=== PATIENT | female | born 1990 | race Hispanic/Latino ===

== ENCOUNTER 2022-12-23 17:18 | Emergency (ER) | payer SELFPAY ==
--- OUTSIDE RECORDS SUMMARY | 2022-12-23 17:22 | XMS REPORT | Continuity of Care Document ---
:1990 Author Organization [facility] t Address [address] [facility]. [address] [place] [address] Care Team Providers Name Role Phone Unavailable Unavailable Unavailable Payers Payer Name Policy Type Policy Number Effective Date Expiration Date S ource Problems This patient has no known problems. Allergies, Adverse Reactions, Alerts Allergy Allergy Status Severity Reaction(s) Onset Inactive Treating Comm ents Source Name Type Date Date Clinician latex DA Active [place] [facility] 09-23 [facility] 00:00: [address] latex DA Active [place] RASH [facility] 09-23 [facility] 00:00: [address] Medications This patient has no known medications. Procedures This patient has no known procedures. Encounters Start End Encounter Admission Attending Care Care Encounter Source Date/Time Date/Time Type Type Clinicians Facility Department ID 2019-12-20 Inpatient [facility] ER [id number] [facility] 14:24:[address] [place] [address] Results Test Description Test Time Test Comments Results Result [facility] e Comments - CTA CHEST FOR PE 2019-12-20 Patient Name: 19:28:00 DELONTE MCBRIDE Unit No: [id number] EXAMS: CPT CODE: [id number] CTA CHEST FOR PE [id number] Reason: PE PROTOCOL History: PE PROTOCOL. Technique: Post contrast images of the chest are obtained, with detailed contrast images with two-dimensional and coronal reconstructed images. Intravenous administration of 80 cc Isovue-370 was used according to the CT pulmonary angiogram protocol. 2-D and 3-D reconstructions performed. Comparison: None. Findings: No filling defects within the central pulmonary arteries. The main pulmonary artery is normal in size. Heart, aorta, and great vessels unremarkable. Lungs show no worrisome air space, interstitial, or airways disease. No pleural thickening or pleural effusion. No mediastinal mass. No adenopathy appreciated in the mediastinum, hilum, or axilla. Visualized upper abdomen unremarkable. Bones and soft tissues within normal limits. Impression: 1. No CT evidence for pulmonary embolism. at 1928 Reported and signed by: Fab Chirinos MD CC: Belle Diggs MORTGAGE PROCESSOR; Ricardo Alvarez MD Technologist: Ludy Ivey CT Trscrpt Dt/ ([id number])[email or web address] Orig Print D/T: S: 12/20/2019 (1930) CTDI: DLP: [facility] NAME: DELONTE MCBRIDE [id number] [facility] PHYS: PEPDA. [place] [id number] : 1990 AGE: 29 SEX: F LOC: D.NER PHONE #: [phone] EXAM DATE: 12/20/2019 STATUS: REG ER FAX #: RAD NO: DC Dt: PAGE 1 Signed Report UA RFLX MICROSCOPIC CULTURE 2019-12-20 17:34:00 Test Item Value Reference Range Interpretation Comme nts UA COLOR (test code = COLU) YELLOW YELLOW UA APPEARANCE (test code = APPU) CLEAR CLEAR UA GLUCOSE DIPSTICK (test code = DGLUU) NEGATIVE mg/dL NEGATIVE UA BILIRUBIN DIPSTICK (test code = BILU) NEGATIVE NEGATIVE UA KETONE DIPSTICK (test code = KETU) NEGATIVE mg/dL NEGATIVE UA SPECIFIC GRAVITY (test code = SGU) 1.010 1.001-1.035 N UA BLOOD DIPSTICK (test code = MP) NEGATIVE NEGATIVE UA PH DIPSTICK (test code = SERVANDO) 8.0 5.5-7.0 H UA PROTEIN DIPSTICK (test code = PROU) NEGATIVE mg/dL NEGATIVE UA UROBILINOGEN DIPSTICK (test code = URO) NORMAL mg/dL NORMAL UA NITRITE DIPSTICK (test code = HEATHER) NEGATIVE NEGATIVE UA LEUKOCYTE ESTERASE DIPSTICK (test code = LEUU) NEGATIVE NEGA TIVE UA COMMENT (test code = COMU) VOLUME 10-12 ML URINE SPECIMEN DESCRIPTION (test code = UASPEC) Clean Catch UA WBC (test code = WBCU) < 10 #/hpf <10 UA SQUAMOUS CELLS (test code = SQU) 20 - 40 #/lpf <100 UA CULTURE NEEDED? (test code = UACULT) Criteria not met Indication for culture: Flank PainURINE SOURCE: Clean CatchD-DIMER QUANT 2019-12-20 17:33:00 Test Item Value Reference Range Interpretation Comments D-DIMER QUANT (test 615 D-DU 0-400 H Alere Triage values code = DDIMER) presented in units of mass (ng/mL)of D-dim er, also known as D-dime r units (D-DU).* Cut-of f: 400 ng/mL Results o f the D-Dimer test sh ould always be interpretedi n conjunction wit h the patient's medic al history, clinicalpresent ation, and other findings. Clinical diagnosis shoul dnot be based on the re sults of D-Dimer alone.P atients with a distal D VT may have a normal D-Dime r result. - XR CHEST 1 [id number] 17:33:00 Patient Name: DELONTE MCBRIDE Unit No: [id number] EXAMS: CPT CODE: [id number] XR CHEST 1 V [id number] Reason: TACHYCARDIA, DYSPNEA History: TACHYCARDIA, DYSPNEA. Technique: Single view of the chest Com parison: None Findings: Normal cardiomediastinal silhouette. Clear lungs. Impression: Unremarkable chest radiograph. at 1733 Reported and signed by: Fab Chirinos MD CC: Belle Diggs MORTGAGE PROCESSOR; Ricardo Alvarez MD Technologist: Ludy THOMAS Trscrpt Dt/ ([id number])[email or web address] Orig Print D/T: S: 12/20/2019 (1736) [facility] NAME: DELONTE MCBRIDE [id number] [facility] PHYS: [email or web address] - [place] [address] : 1990 AGE: 29 SEX: F LOC: [place] PHONE #: [phone] EXAM DATE: 12/20/2019 STATUS: PRE ER FAX #: RAD NO: DC Dt: PAGE 1 Signed ReportUA RFLX MICROSCOPIC CULTURE 2019-12-20 17:29:00 Test Item Value Reference Range Interpretation Comments UA COLOR (test code = COLU) YELLOW YELLOW UA APPEARANCE (test code = CLEAR CLEAR APPU) UA GLUCOSE DIPSTICK (test NEGATIVE mg/dL NEGATIVE code = DGLUU) UA BILIRUBIN DIPSTICK (test NEGATIVE NEGATIVE code = BILU) UA KETONE DIPSTICK (test code NEGATIVE mg/dL NEGATIVE = KETU) UA SPECIFIC GRAVITY (test 1.010 1.001-1.035 N code = SGU) UA BLOOD DIPSTICK (test code NEGATIVE NEGATIVE = MP) UA PH DIPSTICK (test code = 8.0 5.5-7.0 H SERVANDO) UA PROTEIN DIPSTICK (test NEGATIVE mg/dL NEGATIVE code = PROU) UA UROBILINOGEN DIPSTICK NORMAL mg/dL NORMAL (test code = URO) UA NITRITE DIPSTICK (test NEGATIVE NEGATIVE code = HEATHER) UA LEUKOCYTE ESTERASE NEGATIVE NEGATIVE DIPSTICK (test code = LEUU) UA COMMENT (test code = COMU) VOLUME 10-12 ML URINE SPECIMEN DESCRIPTION Clean Catch (test code = UASPEC) UA WBC (test code = WBCU) #/hpf <10 UA SQUAMOUS CELLS (test code #/lpf <100 = SQU) UA CULTURE NEEDED? (test code = UACULT) Indication for culture: Flank PainURINE SOURCE: Clean CatchCOMPREHENSIVE METABOLIC [id number] 17:07:00 Test Item Value Reference Range Interpretation Comments SODIUM (test code = 137 MMOL/L 133-145 N NA) POTASSIUM (test code = 3.0 MMOL/L 3.6-5.2 L K) CHLORIDE (test code = 96 MMOL/L 100-108 L CL) CARBON DIOXIDE (test 18 MMOL/L 22-32 L code = CO2) GLUCOSE (test code = 189 MG/DL 65-99 H Results of this GLU) assay method ma y be falsely depress ed orelevated if patient is taki ng sulfasalazine. BLOOD UREA NITROGEN 8 MG/DL 6-20 N (test code = BUN) GLOMERULAR FILTRATION 60 71-165 L Report ing units: RATE (test code = GFR) mL/mi n/1.73m\S\2 (Modified MDRD Formula) CREATININE (test code 1.09 MG/DL 0.60-1.00 H = CREAT) TOTAL PROTEIN (test 8.2 G/DL 6.4-8.2 N code = PROT) ALBUMIN (test code = 4.5 G/DL 3.4-5.0 N ALB) GLOBULIN (test code = 3.7 G/DL 1.5-3.8 N GLOB) ALBUMIN/GLOBULIN RATIO 1.2 1.1-2.2 N (test code = A/G) CALCIUM (test code = 9.7 MG/DL 8.7-10.5 N CA) BILIRUBIN TOTAL (test 0.6 MG/DL 0.0-1.0 N code = BILT) SGOT/AST (test code = 17 Units/L 15-37 N Result s of this AST) assay method ma y be falsely depress ed orelevated if patient is taki ng sulfasalazine. SGPT/ALT (test code = 20 Units/L 30-65 L Result s of this ALT) assay method ma y be falsely depress ed orelevated if patient is taki ng sulfasalazine. ALKALINE PHOSPHATASE 146 Units/L 50-136 H TOTAL (test code = ALKP) [id number] 17:07:00 Test Item Value Reference Range Interpretation Comments LIPASE (test code = LIP) 89 Units/L 73-393 N NT PRO-BRAIN NATRIURETIC [id number] 17:07:00 Test Item Value Reference Range Interpretation Comments NT PRO-BRAIN 49 PG/ML 0-125 N Results of this assay NATRIURETIC PEPTI (test meth od may be falsely code = PROBNP) depressed ore levated if patient is t aking high doses of B iotin. [id number] 17:07:00 Test Item Value Reference Range Interpretation Comments TROPONIN-I (test < 0.04 NG/ML 0.00-0.06 N - The use of serial code = TROPI) sampling and t esting protocol is a recommended pra ctice.- An elevated tro ponin level alone is often not sufficient for diagnosis of myocardial infarction.Resu lts of this assay meth od may be falsely depress ed orelevated if p atient is taking high dos es of Biotin. CBC W/AUTO [id number] 16:56:00 Test Item Value Reference Range Interpretation Comments WHITE BLOOD CELL (test code = 11.38 x10 3/uL 4.80-10.80 H WBC) RED BLOOD CELL (test code = 4.57 x10 6/uL 4.2-5.4 N RBC) HEMOGLOBIN (test code = HGB) 14.3 G/DL 12.0-16.0 N HEMATOCRIT (test code = HCT) 44.1 % 37-47 N MEAN CELL VOLUME (test code = 96.5 FL 81-99 N MCV) MEAN CELL HGB (test code = 31.3 PG 27-31 H MCH) MEAN CELL HGB CONCENTRATION 32.4 G/DL 33-37 L (test code = MCHC) RED CELL DISTRIBUTION WIDTH 13.3 % 11.5-14.5 N (test code = RDW) PLATELET COUNT (test code = 334 x10 3/uL 150-450 N PLT) MEAN PLATELET VOLUME (test 11.1 FL 7.4-10.4 H code = MPV) NEUTROPHIL % (test code = NT%) 75.4 % 42-86 N LYMPHOCYTE % (test code = LY%) 17.8 % 24-44 L MONOCYTE % (test code = MO%) 6.1 % 0.0-4.0 H EOSINOPHIL % (test code = EO%) 0.4 % 0.0-2.7 N BASOPHIL % (test code = BA%) 0.3 % 0.0-0.5 N NEUTROPHIL # (test code = NT#) 8.60 x10 3/uL 1.8-7.7 H LYMPHOCYTE # (test code = LY#) 2.02 x10 3/uL 1.0-4.8 N MONOCYTE # (test code = MO#) 0.69 x10 3/uL 0.0-0.8 N EOSINOPHIL # (test code = EO#) 0.04 x10 3/uL 0.0-0.5 N BASOPHIL # (test code = BA#) 0.03 x10 3/uL 0.0-0.2 N HCG SERUM [id number] 16:55:00 Test Item Value Reference Range Interpretation Comments HCG SERUM QUAL NEGATIVE NEGATIVE False negativ es may occur (test code = when levels of hCGare below HCGQL) 10 mIU/ml. When is still suspec alice, a new specimenshould be obtained after 48 hours and re-tested.If wa iting 48 hours is not me dically advisable,the t est result should be confi rmed using aquantitative h CG assay. Notes Date/Time Note Provider Source 2019-12-20 17:09:00-00:00 [id number] [place], [place] PATIENT NAME: DELONTE MCBRIDE ADMIT DATE: 0 12/20/19 ACCOUNT NO: [id number] ROOM NO: AGE: 29 REPORT TYPE: ELECTROCARDIOGRAM SEX: F : 89 ADMITTING PHYSICIAN: ATTENDING PHYSICIAN:Ricardo Alvarez MD Order: [id number] Test Reason : TACHYCARDIA Test Date/Time Stamp: WedDec 20 2019 17:09:01 Blood Pressure : / mmHG Vent. Rate : 083 BPM Atrial Rate : 083 BPM P-R Int : 128 ms QRS Dur : 092 ms QT Int : 388 ms P-R-T Axes : 064 -09 020 degree s QTc Int : 455 ms Normal sinus rhythm with sinus arrhythmia Normal ECG No previous ECGs available Confirmed by RICARDO ALVAREZ DO ([id number]), technical writer and editor TYE BALDWIN ([id number]) on 02/16/2020 2:35:26 PM Referred By: Self Referred Confirmed by:RICARDO SANDOVAL DO at 1436 PATIENT NAME: DELONTE MCBRIDE ACCOUNT #: [id number] 2019-12-20 14:57:00-00:[address] [facility] OR A [facility]AMPUS OF [facility] EMERGENCY PROVIDER REPORT REPORT#:[id number] REPORT STATUS: Signed DATE:12/20/19 TIME: 1457 PATIENT: DELONTE MCBRIDE UNIT #: [id number] ROOM/BED: AGE: 29 SEX: F PCP PHYS: No Primary or Family Ph ysician SERVICE AUTHOR: Ricardo Alvarez MD * ALL edits or amendments must be made on the el [employer]/computer document * Ricardo Alvarez 12/20/19 1457: HPI-Chest Pain 40 and Over General Confirmed Patient Yes Past Medical History - Adult Stated Complaint SOB Allergies Coded Allergies: latex (Intermediate, RASH 09/24/15) Drug Use Denies recreational drugs Patient Discharge Departure Vital Signs/Condition Vital Signs First Documented: Result Date Time Pulse Ox 99 12/19 1426 B/P 189/95 / 1426 B/P Mean 126 / 1426 O2 Delivery Room air 12/19 1426 Temp 36.9 09 1426 Pulse 132 09/ 1426 Resp 22 12/19 1426 Last Documented: Result Date Time Pulse Ox 99 12/19 1426 B/P 189/95 / 1426 B/P Mean 126 /09 1426 O2 Delivery Room air 12/19 1426 Temp 36.9 12/19 1426 Pulse 132 09/09 1426 Resp 22 12/19 1426 All vital signs available at the time of this en try have been reviewed. Belle Castillo 12/20/19 1645: HPI-Chest Pain 40 and Over General Initial Greet Date/Time 12/20/19 1457 Presentation Chief Complaint Chest pain, Shortness of breath Hx Obtained From Patient Sudden in Onset? Yes Onset Occurred Today (1315) Symptom Duration Since onset Location Substernal Quality Tightness )( Migration/Movement None Severity: Onset Mild Severity: Current No pain currently Exacerbated by Nothing Relieved by Rest Context /Sexual Hx Last Menstrual Period 11/28/19 Free Text HPI Notes Free Text HPI Notes 29-year-old female patient presents to the ER to day. She reports that at approximately 115 after retu rning from her lunch break she had a panic attack at work. The patient states that she had sh ortness of breath. She reports feeling her heart was beating rather fast. After a while she noted that her hands were cramping. She felt painful electric shocks to he r arms and legs. I have evaluated the patient 2 hours after her a rrival in the ER. She states she is feeling much better a t this point. Her heart rate continues to be in the 1 teens to 120s. She states she had not eaten anything for lunch or breakfast. She has only had coffee today. 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 She is a daily smoker. The patient does admit to drinking 1 to 2-24 ounce beers daily. She also smokes marijuana. She denies any nausea or vomiting. The patient has a Nexplanon implant in her arm. Risk-Chest Pain 40 and Over Risk Stratification )( Coronary Artery Disease Risk factors reviewed , No risk factors )( Thoracic Aortic Dissection Risk factors revie wed, No risk factors )( Pulmonary Embolism Risk factors reviewed, No risk factors )( AMI-Aspirin Aspirin Last 24 Hrs None Contraindications None )( HEART for MACE )( HEART for MACE Response Value History Low index of suspicion 0 Age Age under 45 0 Risk Factors for CAD No risk factors known 0 Total 0 Physical Exam Vital Signs Vital Signs First Documented: Result Date Time Pulse Ox 99 12/19 1426 B/P 189/95 12/19 1426 B/P Mean 126 12/19 1426 O2 Delivery Room air 12/19 142 Temp 36.9 12/19 1426 Pulse 132 12/19 1426 Resp 22 12/19 142 Last Documented: Result Date Time Pulse Ox 99 12/19 1426 B/P 189/95 12/19 1426 B/P Mean 126 12/19 1426 O2 Delivery Room air 12/19 1426 Temp 36.9 12/19 1426 Pulse 132 12/19 1426 Resp 22 12/19 1426 Review of Vital Signs Reviewed Focused PE General/Const General/Const Awake, Alert, No acute distress, Cooperative, Not toxic appearing Resp/Chest Respiratory/Chest Atraumatic, Breath sounds NL, No respiratory distress Cardiovascular Heart Rate/Rhythm Tachycardia. Abdomen/GI Abdomen/GI Atraumatic, Soft, Non-tender, BS nor moactive, No distention MS Back Back No CVA tenderness Skin Skin Atraumatic, Color NL, Warm, Dry, Intact Neurologic Neurologic Oriented X3, Speech NL, Memory NL Psychiatric Psychiatric Affect NL, Mood NL Interpretation Diagnostics Lab Results Interpretation Results Laboratory Tests 12/20/19 1435: [Embedded Image Not Available] Laboratory Tests: 12/19 12/19 1712 1435 Chemistry HCG, Qual (NEGATIVE) NEGATIVE Urines Ur Spec Description Clean Catch Urine Color (YELLOW) YELLOW Urine Appearance (CLEAR) CLEAR Urine pH (5.5 - 7.0) 8.0 H Ur Specific Winton (1.001 - 1.035) 1.010 Urine Protein (NEGATIVE mg/dL) NEGATIVE Urine Glucose (UA) (NEGATIVE mg/dL) NEGATIVE Urine Ketones (NEGATIVE mg/dL) NEGATIVE Urine Blood (NEGATIVE) NEGATIVE Urine Nitrite (NEGATIVE) NEGATIVE Urine Bilirubin (NEGATIVE) NEGATIVE Urine Urobilinogen (NORMAL mg/dL) NORMAL Ur Leukocyte Esterase (NEGATIVE) NEGATIVE Urine WBC (<10 #/hpf) < 10 Ur Squamous Epith Cells (<100 #/lpf) 20 - 40 Urine Culture Screen Criteria not met Urine Comment VOLUME 10-12 ML 12/19 1435 Chemistry Sodium (133 - 145 MMOL/L) 137 Potassium (3.6 - 5.2 MMOL/L) 3.0 L Chloride (100 - 108 MMOL/L) 96 L Carbon Dioxide (22 - 32 MMOL/L) 18 L BUN (6 - 20 MG/DL) 8 Creatinine (0.60 - 1.00 MG/DL) 1.09 H Estimated GFR (MDRD) (71 - 165) 60 L Glucose (65 - 99 MG/DL) 189 H Calcium (8.7 - 10.5 MG/DL) 9.7 Total Bilirubin (0.0 - 1.0 MG/DL) 0.6 AST (15 - 37 Units/L) 17 ALT (30 - 65 Units/L) 20 L Alkaline Phosphatase (50 - 136 Units/L) 146 H Troponin I (0.00 - 0.06 NG/ML) < 0.04 NT-Pro-B Natriuret Pep (0 - 125 PG/ML) 49 Total Protein (6.4 - 8.2 G/DL) 8.2 Albumin (3.4 - 5.0 G/DL) 4.5 Globulin (1.5 - 3.8 G/DL) 3.7 Albumin/Globulin Ratio (1.1 - 2.2) 1.2 Lipase (73 - 393 Units/L) 89 Coagulation D-Dimer Quant (PE/DVT) (0 - 400 D-DU) 615 H Hematology WBC (4.80 - 10.80 x10 3/uL) 11.38 H RBC (4.2 - 5.4 x10 6/uL) 4.57 Hgb (12.0 - 16.0 G/DL) 14.3 Hct (37 - 47 %) 44.1 MCV (81 - 99 FL) 96.5 MCH (27 - 31 PG) 31.3 H MCHC (33 - 37 G/DL) 32.4 L RDW Coeff of Kishor (11.5 - 14.5 %) 13.3 Plt Count (150 - 450 x10 3/uL) 334 MPV (7.4 - 10.4 FL) 11.1 H Neut % (Auto) (42 - 86 %) 75.4 Lymph % (Auto) (24 - 44 %) 17.8 L Cooper % (Auto) (0.0 - 4.0 %) 6.1 H Eos % (Auto) (0.0 - 2.7 %) 0.4 Baso % (Auto) (0.0 - 0.5 %) 0.3 Eos # (Auto) (0.0 - 0.5 x10 3/uL) 0.04 Baso # (Auto) (0.0 - 0.2 x10 3/uL) 0.03 Absolute Neuts (auto) (1.8 - 7.7 x10 3/uL) 8.60 H Absolute Lymphs (auto) (1.0 - 4.8 x10 3/uL) 2.0 2 Absolute Monos (auto) (0.0 - 0.8 x10 3/uL) 0.69 Recent Impressions: RADIOLOGY - XR CHEST 1 V 12/19 1718 Report Impression - Status: SIGNED Entered: 12/20/2019 1736 Impression: Unremarkable chest radiograph. Impression By: Larry Chirinos MD CAT SCAN - CTA CHEST FOR PE 12/19 1840 Report Impression - Status: SIGNED Entered: 12/20/2019 1931 Impression: 1. No CT evidence for pulmonary embolism. Impression By: Larry Chirinos MD Re-Evaluation MDM ED Course Medication(s) Ordered Medication(s) Ordered: Antihistamine Drugs Sig/Dillon Start time Last Medication Dose Route Stop Time Status Admin Diphenhydramine HCl 25 MG X1ED STA 12/19 1812 D C 12/19 IV 12/19 1814 1825 Diagnostic Agents Sig/Dillon Start time Last Medication Dose Route Stop Time Status Admin Iopamidol 0 .STK-MED ONE 12/19 1759 DC 12/19 IV 1847 Electrolytic, Caloric, And Dyana Sig/Dillon Start time Last Medication Dose Route Stop Time Status Admin Sodium Chloride 50 ML .STK-MED ONE 12/19 1841 D C 12/19 IV 1846 Potassium 40 MEQ X1ED STA 12/19 1722 DC 12/19 Bicarbonate/Citric PO 12/19 1723 1826 Acid Sodium Chloride 1,000 ML X1ED STA 12/19 1645 DC 12/19 IV 12/19 1744 1710 Hormones And Synthetic Substit Sig/Dillon Start time Last Medication Dose Route Stop Time Status Admin Methylprednisolone 125 MG X1ED STA 12/19 1813 D C 12/19 Sodium Succinate IV 12/19 1814 1825 Patient Discharge Departure Clinical Impression Clinical Impression Primary Impression: Hypokalemia Disposition Decision Discharge )( Discharged to Home Yes )( Time 1933 )( Date 12/20/19 Discharge/Care Plan Counseled Regarding Diagnosi s, Lab results, Imaging studies, Need for follow-up, When to return to ED Prescriptions Reviewed Risks, Benefits, Alternat noah treatment at 1935 RPT #:[id number] END OF REPORT 2019-12-20 14:57:00-00:[address] [facility] OR A CAMPUS OF [facility] EMERGENCY PROVIDER REPORT REPORT#:[id number] REPORT STATUS: Signed DATE:12/20/19 TIME: 1456 PATIENT: DELONTE MCBRIDE UNIT #: [id number] ROOM/BED: AGE: 29 SEX: F PCP PHYS: No Primary or Family Ph ysician SERVICE AUTHOR: Ricardo Alvarez MD * ALL edits or amendments must be made on the [employer]/computer document * Ricardo Alvarez 12/20/19 1457: HPI-Chest Pain 40 and Over General Confirmed Patient Yes Initial Greet Date/Time 12/20/191456 Review of Systems Focused Review of Systems Constitutional Denies: Chills, Fever. Respiratory Reports: Shortness of breath. Cardiovascular Reports: Chest pain, Palpitations. GI Denies: Abdominal pain, Nausea, Vomiting. Musculoskeletal Denies: Back pain, Lumbar pain, Myalgia, Neck pa in, Thoracic pain. Skin Denies: Diaphoresis. Neurologic Denies: Dizziness, Generalized weakness, Headach e, Lightheaded, Numbness. Past Medical History - Adult Stated Complaint SOB Allergies Coded Allergies: latex (Intermediate, RASH 09/24/15) Review of Nursing Notes Rev avail, and agree Drug Use Denies recreational drugs Interpretation Diagnostics Lab Results Interpretation Lab Statement Laboratory studies reviewed and considered in e medical decision-making. Belle Castillo 12/20/19 1645: HPI-Chest Pain 40 and Over Presentation Chief Complaint Chest pain, Shortness of breath Hx Obtained From Patient Sudden in Onset? Yes Onset Occurred Today (1315) Symptom Duration Since onset Location Substernal Quality Tightness )( Migration/Movement None Severity: Onset Mild Severity: Current No pain currently Exacerbated by Nothing Relieved by Rest Context /Sexual Hx Last Menstrual Period 11/28/19 Free Text HPI Notes Free Text HPI Notes 29-year-old female patient presents to the ER to day. She reports that at approximately 115 after retu rning from her lunch break she had a panic attack at work. The patient states that she had sh ortness of breath. She reports feeling her heart was beating rather fast. After a while she noted that her hands were cramping. She felt painful electric shocks to he r arms and legs. I have evaluated the patient 2 hours after her a rrival in the ER. She states she is feeling much better a t this point. Her heart rate continues to be in the 1 teens to 120s. She states she had not eaten anything for lunch or breakfast. She has only had coffee today. 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 She is a daily smoker. The patient does admit to drinking 1 to 2-24 ounce beers daily. She also smokes marijuana. She denies any nausea or vomiting. The patient has a Nexplanon implant in her arm. Risk-Chest Pain 40 and Over Risk Stratification )( Coronary Artery Disease Risk factors reviewed , No risk factors )( Thoracic Aortic Dissection Risk factors revie wed, No risk factors )( Pulmonary Embolism Risk factors reviewed, No risk factors )( AMI-Aspirin Aspirin Last 24 Hrs None Contraindications None )( HEART for MACE )( HEART for MACE Response Value History Low index of suspicion 0 Age Age under 45 0 Risk Factors for CAD No risk factors known 0 Total 0 Physical Exam Vital Signs Vital Signs First Documented: Result Date Time Pulse Ox 99 12/19 1426 B/P 189/95 12/19 1425 B/P Mean 126 12/19 1425 O2 Delivery Room air 12/19 1425 Temp 98.5 12/19 1425 Pulse 132 12/19 1425 Resp 22 12/19 1425 Last Documented: Result Date Time Pulse Ox 98 12/19 1929 B/P 136/83 12/19 1929 B/P Mean 100 12/19 1929 O2 Delivery Room air 12/19 1929 Temp 98.1 12/19 1929 Pulse 91 12/19 1929 Resp 18 12/19 1929 Review of Vital Signs Reviewed Focused PE General/Const General/Const Awake, Alert, No acute distress, Cooperative, Not toxic appearing Resp/Chest Respiratory/Chest Atraumatic, Breath sounds NL, No respiratory distress Cardiovascular Heart Rate/Rhythm Tachycardia. Abdomen/GI Abdomen/GI Atraumatic, Soft, Non-tender, BS nor moactive, No distention MS Back Back No CVA tenderness Skin Skin Atraumatic, Color NL, Warm, Dry, Intact Neurologic Neurologic Oriented X3, Speech NL, Memory NL Psychiatric Psychiatric Affect NL, Mood NL Interpretation Diagnostics Lab Results Interpretation Results Laboratory Tests 12/20/19 1435: [Embedded Image Not Available] Laboratory Tests: 12/19 12/19 1712 1435 Chemistry HCG, Qual (NEGATIVE) NEGATIVE Urines Ur Spec Description Clean Catch Urine Color (YELLOW) YELLOW Urine Appearance (CLEAR) CLEAR Urine pH (5.5 - 7.0) 8.0 H Ur Specific [place] (1.001 - 1.035) 1.010 Urine Protein (NEGATIVE mg/dL) NEGATIVE Urine Glucose (UA) (NEGATIVE mg/dL) NEGATIVE Urine Ketones (NEGATIVE mg/dL) NEGATIVE Urine Blood (NEGATIVE) NEGATIVE Urine Nitrite (NEGATIVE) NEGATIVE Urine Bilirubin (NEGATIVE) NEGATIVE Urine Urobilinogen (NORMAL mg/dL) NORMAL Ur Leukocyte Esterase (NEGATIVE) NEGATIVE Urine WBC (<10 #/hpf) < 10 Ur Squamous Epith Cells (<100 #/lpf) 20 - 40 Urine Culture Screen Criteria not met Urine Comment VOLUME 10-12 ML 12/19 1435 Chemistry Sodium (133 - 145 MMOL/L) 137 Potassium (3.6 - 5.2 MMOL/L) 3.0 L Chloride (100 - 108 MMOL/L) 96 L Carbon Dioxide (22 - 32 MMOL/L) 18 L BUN (6 - 20 MG/DL) 8 Creatinine (0.60 - 1.00 MG/DL) 1.09 H Estimated GFR (MDRD) (71 - 165) 60 L Glucose (65 - 99 MG/DL) 189 H Calcium (8.7 - 10.5 MG/DL) 9.7 Total Bilirubin (0.0 - 1.0 MG/DL) 0.6 AST (15 - 37 Units/L) 17 ALT (30 - 65 Units/L) 20 L Alkaline Phosphatase (50 - 136 Units/L) 146 H Troponin I (0.00 - 0.06 NG/ML) < 0.04 NT-Pro-B Natriuret Pep (0 - 125 PG/ML) 49 Total Protein (6.4 - 8.2 G/DL) 8.2 Albumin (3.4 - 5.0 G/DL) 4.5 Globulin (1.5 - 3.8 G/DL) 3.7 Albumin/Globulin Ratio (1.1 - 2.2) 1.2 Lipase (73 - 393 Units/L) 89 Coagulation D-Dimer Quant (PE/DVT) (0 - 400 D-DU) 615 H Hematology WBC (4.80 - 10.80 x10 3/uL) 11.38 H RBC (4.2 - 5.4 x10 6/uL) 4.57 Hgb (12.0 - 16.0 G/DL) 14.3 Hct (37 - 47 %) 44.1 MCV (81 - 99 FL) 96.5 MCH (27 - 31 PG) 31.3 H MCHC (33 - 37 G/DL) 32.4 L RDW Coeff of Kishor (11.5 - 14.5 %) 13.3 Plt Count (150 - 450 x10 3/uL) 334 MPV (7.4 - 10.4 FL) 11.1 H Neut % (Auto) (42 - 86 %) 75.4 Lymph % (Auto) (24 - 44 %) 17.8 L Cooper % (Auto) (0.0 - 4.0 %) 6.1 H Eos % (Auto) (0.0 - 2.7 %) 0.4 Baso % (Auto) (0.0 - 0.5 %) 0.3 Eos # (Auto) (0.0 - 0.5 x10 3/uL) 0.04 Baso # (Auto) (0.0 - 0.2 x10 3/uL) 0.03 Absolute Neuts (auto) (1.8 - 7.7 x10 3/uL) 8.60 H Absolute Lymphs (auto) (1.0 - 4.8 x10 3/uL) 2. 02 Absolute Monos (auto) (0.0 - 0.8 x10 3/uL) 0.69 Recent Impressions: RADIOLOGY - XR CHEST 1 V 12/19 1718 Report Impression - Status: SIGNED Entered: 12/20/2019 173 Impression: Unremarkable chest radiograph. Impression By: Larry Chirinos MD CAT SCAN - CTA CHEST FOR PE 12/20 1839 Report Impression - Status: SIGNED Entered: 12/20/2019 193 Impression: 1. No CT evidence for pulmonary embolism. Impression By: Larry Chirinos MD Re-Evaluation MDM ED Course Medication(s) Ordered Medication(s) Ordered: Antihistamine Drugs Sig/Dillon Start time Last Medication Dose Route Stop Time Status Admin Diphenhydramine HCl 25 MG X1ED STA 12/19 1813 D C 12/19 IV 12/19 1814 1825 Diagnostic Agents Sig/Dillon Start time Last Medication Dose Route Stop Time Status Admin Iopamidol 0 .STK-MED ONE 12/19 1759 DC 12/19 IV 1847 Electrolytic, Caloric, And Dyana Sig/Dillon Start time Last Medication Dose Route Stop Time Status Admin Sodium Chloride 50 ML .STK-MED ONE 12/19 1841 D C 12/19 IV 1846 Potassium 40 MEQ X1ED STA 12/19 1722 DC 12/19 Bicarbonate/Citric PO 12/19 1723 1826 Acid Sodium Chloride 1,000 ML X1ED STA 12/19 1645 DC 12/19 IV 12/19 1744 1710 Hormones And Synthetic Substit Sig/Dillon Start time Last Medication Dose Route Stop Time Status Admin Methylprednisolone 125 MG X1ED STA 12/19 181 D C 12/19 Sodium Succinate IV 12/19 1814 1825 Patient Discharge Departure Vital Signs/Condition Vital Signs First Documented: Result Date Time Pulse Ox 99 12/19 1426 B/P 189/95 12/19 1426 B/P Mean 126 12/19 1426 O2 Delivery Room air 12/19 1426 Temp 98.5 12/19 1426 Pulse 132 12/19 1426 Resp 22 12/19 1426 Last Documented: Result Date Time Pulse Ox 98 12/19 1929 B/P 136/83 12/19 1929 B/P Mean 100 12/19 1929 O2 Delivery Room air 12/19 1929 Temp 98.1 12/19 1929 Pulse 91 12/19 1929 Resp 18 12/19 1929 All vital signs available at the time of this en try have been reviewed. Clinical Impression Clinical Impression Primary Impression: Hypokalemia Disposition Decision Discharge )( Discharged to Home Yes )( Time 1933 )( Date 12/20/19 Discharge/Care Plan Counseled Regarding Diagnosi s, Lab results, Imaging studies, Need for follow-up, When to return to ED Prescriptions Reviewed Risks, Benefits, Alternat noah treatment at 1935 RPT #:[id number] END OF REPORT 2019-12-20 14:57:00-00:[address] [facility] ([facility]) OR A CAMPUS OF [facility] EMERGENCY PROVIDER REPORT REPORT#:[id number] REPORT STATUS: Signed DATE:12/20/19 TIME: 1456 PATIENT: DELONTE MCBRIDE UNIT #: [id number] ROOM/BED: AGE: 29 SEX: F PCP PHYS: No Primary or Family Ph ysician SERVICE AUTHOR: Ricardo Alvarez MD * ALL edits or amendments must be made on the el [employer]/computer document * Ricardo Alvarez 12/20/19 1457: HPI-Chest Pain 40 and Over General Confirmed Patient Yes Initial Greet Date/Time 12/20/19 145 Review of Systems Focused Review of Systems Constitutional Denies: Chills, Fever. Respiratory Reports: Shortness of breath. Cardiovascular Reports: Chest pain, Palpitations. GI Denies: Abdominal pain, Nausea, Vomiting. Musculoskeletal Denies: Back pain, Lumbar pain, Myalgia, Neck pa in, Thoracic pain. Skin Denies: Diaphoresis. Neurologic Denies: Dizziness, Generalized weakness, Headach e, Lightheaded, Numbness. Past Medical History - Adult Stated Complaint SOB Allergies Coded Allergies: latex (Intermediate, RASH 09/24/15) Review of Nursing Notes Rev avail, and agree Drug Use Denies recreational drugs Interpretation Diagnostics Lab Results Interpretation Lab Statement Laboratory studies reviewed and considered in e medical decision-making. Patient Discharge Departure Vital Signs/Condition Condition Stable [place] 12/20/19 1645: HPI-Chest Pain 40 and Over Presentation Chief Complaint Chest pain, Shortness of breath Hx Obtained From Patient Sudden in Onset? Yes Onset Occurred Today (1315) Symptom Duration Since onset Location Substernal Quality Tightness )( Migration/Movement None Severity: Onset Mild Severity: Current No pain currently Exacerbated by Nothing Relieved by Rest Context /Sexual Hx Last Menstrual Period 11/28/19 Free Text HPI Notes Free Text HPI Notes 29-year-old female patient presents to the ER to day. She reports that at approximately 115 after retu rning from her lunch break she had a panic attack at work. The patient states that she had sh ortness of breath. She reports feeling her heart was beating rather fast. After a while she noted that her hands were cramping. She felt painful electric shocks to he r arms and legs. I have evaluated the patient 2 hours after her a rrival in the ER. She states she is feeling much better a t this point. Her heart rate continues to be in the 1 teens to 120s. She states she had not eaten anything for lunch or breakfast. She has only had coffee today. 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 She is a daily smoker. The patient does admit to drinking 1 to 2-24 ounce beers daily. She also smokes marijuana. She denies any nausea or vomiting. The patient has a Nexplanon implant in her arm. Risk-Chest Pain 40 and Over Risk Stratification )( Coronary Artery Disease Risk factors reviewed , No risk factors )( Thoracic Aortic Dissection Risk factors revie wed, No risk factors )( Pulmonary Embolism Risk factors reviewed, No risk factors )( AMI-Aspirin Aspirin Last 24 Hrs None Contraindications None )( HEART for MACE )( HEART for MACE Response Value History Low index of suspicion 0 Age Age under 45 0 Risk Factors for CAD No risk factors known 0 Total 0 Physical Exam Vital Signs Vital Signs First Documented: Result Date Time Pulse Ox 99 12/19 1426 B/P 189/95 12/19 1426 B/P Mean 126 12/19 1426 O2 Delivery Room air 12/19 1425 Temp 98.5 12/19 1425 Pulse 132 12/19 142 Resp 22 12/19 1425 Last Documented: Result Date Time Pulse Ox 98 12/19 1929 B/P 136/83 12/19 1929 B/P Mean 100 12/19 1929 O2 Delivery Room air 12/19 1929 Temp 98.1 12/19 1929 Pulse 91 12/19 1929 Resp 18 12/19 1929 Review of Vital Signs Reviewed Focused PE General/Const General/Const Awake, Alert, No acute distress, Cooperative, Not toxic appearing Resp/Chest Respiratory/Chest Atraumatic, Breath sounds NL, No respiratory distress Cardiovascular Heart Rate/Rhythm Tachycardia. Abdomen/GI Abdomen/GI Atraumatic, Soft, Non-tender, BS nor moactive, No distention MS Back Back No CVA tenderness Skin Skin Atraumatic, Color NL, Warm, Dry, Intact Neurologic Neurologic Oriented X3, Speech NL, Memory NL Psychiatric Psychiatric Affect NL, Mood NL Interpretation Diagnostics Lab Results Interpretation Results Laboratory Tests 12/20/19 1435: [Embedded Image Not Available] Laboratory Tests: 12/19 12/19 1712 1435 Chemistry HCG, Qual (NEGATIVE) NEGATIVE Urines Ur Spec Description Clean Catch Urine Color (YELLOW) YELLOW Urine Appearance (CLEAR) CLEAR Urine pH (5.5 - 7.0) 8.0 H Ur Specific [place] (1.001 - 1.035) 1.010 Urine Protein (NEGATIVE mg/dL) NEGATIVE Urine Glucose (UA) (NEGATIVE mg/dL) NEGATIVE Urine Ketones (NEGATIVE mg/dL) NEGATIVE Urine Blood (NEGATIVE) NEGATIVE Urine Nitrite (NEGATIVE) NEGATIVE Urine Bilirubin (NEGATIVE) NEGATIVE Urine Urobilinogen (NORMAL mg/dL) NORMAL Ur Leukocyte Esterase (NEGATIVE) NEGATIVE Urine WBC (<10 #/hpf) < 10 Ur Squamous Epith Cells (<100 #/lpf) 20 - 40 Urine Culture Screen Criteria not met Urine Comment VOLUME 10-12 ML 12/19 1435 Chemistry Sodium (133 - 145 MMOL/L) 137 Potassium (3.6 - 5.2 MMOL/L) 3.0 L Chloride (100 - 108 MMOL/L) 96 L Carbon Dioxide (22 - 32 MMOL/L) 18 L BUN (6 - 20 MG/DL) 8 Creatinine (0.60 - 1.00 MG/DL) 1.09 H Estimated GFR (MDRD) (71 - 165) 60 L Glucose (65 - 99 MG/DL) 189 H Calcium (8.7 - 10.5 MG/DL) 9.7 Total Bilirubin (0.0 - 1.0 MG/DL) 0.6 AST (15 - 37 Units/L) 17 ALT (30 - 65 Units/L) 20 L Alkaline Phosphatase (50 - 136 Units/L) 146 H Troponin I (0.00 - 0.06 NG/ML) < 0.04 NT-Pro-B Natriuret Pep (0 - 125 PG/ML) 49 Total Protein (6.4 - 8.2 G/DL) 8.2 Albumin (3.4 - 5.0 G/DL) 4.5 Globulin (1.5 - 3.8 G/DL) 3.7 Albumin/Globulin Ratio (1.1 - 2.2) 1.2 Lipase (73 - 393 Units/L) 89 Coagulation D-Dimer Quant (PE/DVT) (0 - 400 D-DU) 615 H Hematology WBC (4.80 - 10.80 x10 3/uL) 11.38 H RBC (4.2 - 5.4 x10 6/uL) 4.57 Hgb (12.0 - 16.0 G/DL) 14.3 Hct (37 - 47 %) 44.1 MCV (81 - 99 FL) 96.5 MCH (27 - 31 PG) 31.3 H MCHC (33 - 37 G/DL) 32.4 L RDW Coeff of Kishor (11.5 - 14.5 %) 13.3 Plt Count (150 - 450 x10 3/uL) 334 MPV (7.4 - 10.4 FL) 11.1 H Neut % (Auto) (42 - 86 %) 75.4 Lymph % (Auto) (24 - 44 %) 17.8 L Cooper % (Auto) (0.0 - 4.0 %) 6.1 H Eos % (Auto) (0.0 - 2.7 %) 0.4 Baso % (Auto) (0.0 - 0.5 %) 0.3 Eos # (Auto) (0.0 - 0.5 x10 3/uL) 0.04 Baso # (Auto) (0.0 - 0.2 x10 3/uL) 0.03 Absolute Neuts (auto) (1.8 - 7.7 x10 3/uL) 8.60 H Absolute Lymphs (auto) (1.0 - 4.8 x10 3/uL) 2.0 2 Absolute Monos (auto) (0.0 - 0.8 x10 3/uL) 0.69 Recent Impressions: RADIOLOGY - XR CHEST 1 V 12/19 1718 Report Impression - Status: SIGNED Entered: 12/20/2019 1736 Impression: Unremarkable chest radiograph. Impression By: Larry Chirinos MD CAT SCAN - CTA CHEST FOR PE 12/20 1839 Report Impression - Status: SIGNED Entered: 12/20/2019 1931 Impression: 1. No CT evidence for pulmonary embolism. Impression By: Larry Chirinos MD Re-Evaluation MDM ED Course Medication(s) Ordered Medication(s) Ordered: Antihistamine Drugs Sig/Dillon Start time Last Medication Dose Route Stop Time Status Admin Diphenhydramine HCl 25 MG X1ED STA 12/19 1813 D C 12/19 IV 12/19 1814 1825 Diagnostic Agents Sig/Dillon Start time Last Medication Dose Route Stop Time Status Admin Iopamidol 0 .STK-MED ONE 12/19 1759 DC 12/19 IV 1847 Electrolytic, Caloric, And Dyana Sig/Dillon Start time Last Medication Dose Route Stop Time Status Admin Sodium Chloride 50 ML .STK-MED ONE 12/19 1841 D C 12/19 IV 1846 Potassium 40 MEQ X1ED STA 12/19 1722 DC 12/19 Bicarbonate/Citric PO 12/19 1723 1826 Acid Sodium Chloride 1,000 ML X1ED STA 12/19 1645 D C 12/19 IV 12/19 1744 1710 Hormones And Synthetic Substit Sig/Dillon Start time Last Medication Dose Route Stop Time Status Admin Methylprednisolone 125 MG X1ED STA 12/19 181 D C 12/19 Sodium Succinate IV 12/19 1814 1825 Patient Discharge Departure Vital Signs/Condition Vital Signs First Documented: Result Date Time Pulse Ox 99 12/19 1426 B/P 189/95 12/19 1426 B/P Mean 126 12/19 1426 O2 Delivery Room air 12/19 1426 Temp 98.5 12/19 1426 Pulse 132 12/19 1426 Resp 22 12/19 1426 Last Documented: Result Date Time Pulse Ox 98 12/19 1929 B/P 136/83 12/19 1929 B/P Mean 100 12/19 1929 O2 Delivery Room air 12/19 1929 Temp 98.1 12/19 1929 Pulse 91 12/19 1929 Resp 18 12/19 1929 All vital signs available at the time of this en try have been reviewed. Clinical Impression Clinical Impression Primary Impression: Hypokalemia Disposition Decision Discharge )( Discharged to Home Yes )( Time 193 )( Date 12/20/19 Discharge/Care Plan Counseled Regarding Diagnosi s, Lab results, Imaging studies, Need for follow-up, When to return to ED Prescriptions Reviewed Risks, Benefits, Alternat noah treatment at 1935 Electronically Signed by Ricardo Alvarez MD on at 1035 RPT #:[id number] END OF REPORT
[2022-12-23 17:55] LABS: Absolute Lymphocytes (CBC) 2.9 K/uL (0.7-4.9); Hematocrit 44.1 % (36.0-45.0); Lymphocytes % 23.6 % (15.3-44.8); MCV 97.6 fL (80-100); MPV 8.3 fL (7.6-11.3); Platelets 306 thou/uL (152-406); RBC Red Blood Cell Count 4.52 M/uL (3.86-4.86)
[2022-12-23] MEDS ORDERED: NA CHLORIDE 0.9% 1,000 ML ONE (17:58)
[2022-12-23 18:06] LABS: Transitional Epithelial <5 /HPF (None Seen); Urine Bacteria <20 /HPF (<20); Urine Bilirubin NEGATIVE (Negative); Urine Blood 2+ (Negative); Urine Clarity Clear (Clear); Urine Color Light-Yellow (Yellow); Urine Glucose NEGATIVE (Negative); Urine Mucus Slight /HPF (None Seen); Urine Protein 1+ (Negative); Urine RBC <5 /HPF (None Seen); Urine Urobilinogen 1+ (Normal)
[2022-12-23 18:09] LABS: Barbiturates NEGATIVE (NEGATIVE); Benzodiazepines NEGATIVE (NEGATIVE); Cocaine NEGATIVE (NEGATIVE); METHAMPHETAM NEGATIVE (NEGATIVE); Methadone NEGATIVE (NEGATIVE); Opiates NEGATIVE (NEGATIVE); Phencyclidine NEGATIVE (NEGATIVE); THC Cannibis POSITIVE (NEGATIVE)
[2022-12-23 18:15] LABS: BUN Blood Urea Nitrogen 7 mg/dL (7-18); Bicarbonate 28 mEq/L (21-32); Glomerular Filtration Rate 84 ml/min (=/>90); Glucose Level 131 mg/dL (74-106); Potassium 3.3 mEq/L (3.5-5.1); Sodium Level 135 mEq/L (136-145)
[2022-12-23 18:20] LABS: HCG, Quantitative < 1 mIU/mL (1-3)
--- NOTE | 2022-12-23 20:05 | RAD REPORT ---
EXAM DESCRIPTION: US - Pelvis Complete - 12/23/2022 7:26 pm CLINICAL HISTORY: VAGINAL BLEEDING COMPARISON: No comparisons TECHNIQUE: Sonographic grayscale and color flow images of the pelvis were obtained. FINDINGS: The uterus is normal in size, shape and echotexture. The uterus measures 6.5 cm in length. The endometrial stripe measures 1 mm, normal. Left ovary is normal in size, shape and echotexture. The right ovary could not be clearly visualized . The left ovary measures 3.0 x 2.4 x 1.8 cm, and contains normal peripheral follicles. No ovarian or parovarian lesions. No adnexal masses. Normal Doppler blood flow was demonstrated to the left ovary. No significant pelvic ascites. IMPRESSION: No uterine or adnexal abnormality, although the right ovary could not be visualized.
--- NOTE | 2022-12-23 20:18 | ER ---
Nurse's Notes [facility] Name: Shirley Navarro Age: 32 yrs Sex: Female : 1990 Arrival Date: 12/23/2022 Time: 17:18 Bed 14 Private MD: Diagnosis: Hypertensive heart disease without heart failure;Other specified abnormal uterine and vaginal bleeding Presentation: 12/23 17:27 Chief complaint: Patient states: passing blood X 1 week, with clots, had a positive iw test today. 17:27 Acuity: GAY 3 iw 17:27 Method Of Arrival: Ambulatory iw 17:28 Coronavirus screen: At this time, the client does not indicate any symptoms associated iw with coronavirus-19. Ebola Screen: Patient negative for fever greater than or equal to 101.5 degrees Fahrenheit, and additional compatible Ebola Virus Disease symptoms Patient denies exposure to infectious person. Patient denies travel to an Ebola-affected area in the 21 days before illness onset. No symptoms or risks identified at this time. Initial Sepsis Screen: Does the patient meet any 2 criteria? No. Patient's initial sepsis screen is negative. Does the patient have a suspected source of infection? No. Patient's initial sepsis screen is negative. Risk Assessment: Do you want to hurt yourself or someone else? Patient reports no desire to harm self or others. Onset of symptoms was December 23, 2022. 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 - Social history:: Smoking status: Patient reports the use of cigarette tobacco products, smokes one pack cigarettes per day. Screenin:10 [facility] ED Fall Risk Assessment (Adult) History of falling in the last 3 months, me1 including since admission No falls in past 3 months (0 pts) Confusion or Disorientation No (0 pts) Intoxicated or Sedated No (0 pts) Impaired Gait No (0 pts) Mobility Assist Device Used No (0 pt) Altered Elimination No (0 pt) Score/Fall Risk Level 0 - 2 = Low Risk. Abuse screen: Denies threats or abuse. Nutritional screening: No deficits noted. Tuberculosis screening: No symptoms or risk factors identified. Assessment: 18:10 General: Appears comfortable, well groomed, well developed, well nourished, Behavior is me1 calm, cooperative, appropriate for age, Reports Vaginal bleeding/spotting with clots x1 week. Has Nexplanon implant for control but took a test today because she felt and it was positive. Pain: Denies pain. Neuro: Level of Consciousness is awake, alert, obeys commands, Oriented to person, place, time, situation, Appropriate for age. Cardiovascular: Capillary refill < 3 seconds Patient's skin is warm and dry. Respiratory: Airway is patent Respiratory effort is even, unlabored, Respiratory pattern is regular, symmetrical. : Reports vaginal bleeding that is with clots, spotty, since a week ago. Denies burning with urination, pain urinary frequency. Vital Signs: 17:29 Weight 49.9 kg; Height 5 ft. 2 in. ; iw 17:29 Pulse 139; Resp 19; Temp 98.6; Pulse Ox 100% on R/A; iw 18:30 BP 153 / 100; Pulse 83; Resp 16; Pulse Ox 100% on R/A; me1 20:38 BP 156 / 109; Pulse 83; Resp 18; Pulse Ox 99% on R/A; me1 17:29 Body Mass Index 20.12 (49.90 kg, 157.48 cm) iw ED Course: 17:20 Patient arrived in ED. rg4 17:21 Jose Santos PA is PHCP. cp 17:21 Jono Oconnell DO is Attending Physician. cp 17:27 Triage completed. iw 17:41 Suzanne Lawler, TALITA is Primary Nurse. me1 17:46 UDS Sent. bc6 17:46 Abo/rh Typing Sent. bc6 17:46 Basic Metabolic Panel Sent. bc6 17:46 CBC with Diff Sent. bc6 17:46 Test, Urine Sent. bc6 17:46 Quantitative Hcg Sent. bc6 17:46 Urinalysis w/ reflexes Sent. bc6 17:46 Inserted saline lock: 20 gauge in right antecubital area, using aseptic technique. bc6 Blood collected. 18:10 No provider procedures requiring assistance completed. Flushed right antecubital. me1 18:10 Patient has correct armband on for positive identification. Bed in low position. Call me1 light in reach. Side rails up X 1. Provided Education on: POC. Verbalized understanding.. 19:28 US Pelvis Complete In Process Unspecified. EDMS 20:41 IV discontinued, intact, bleeding controlled, No redness/swelling at site. Pressure me1 dressing applied. Administered Medications: 17:46 Drug: NS 0.9% IV 1000 ml Route: IV; Rate: 1 bolus; Site: right antecubital; me1 20:42 Follow up: IV Status: Completed infusion; IV Intake: 1000ml me1 20:32 Drug: Potassium PO Effervescent Tablet 50 mEq Route: PO; me1 20:41 Follow up: Response: No adverse reaction me1 Medication: 18:10 VIS not applicable for this client. me1 Intake: 20:42 IV: 1000ml; Total: 1000ml. me1 Outcome: 20:17 Discharge ordered by MD. cp 20:41 Discharged to home ambulatory. me1 20:41 Condition: stable 20:41 Discharge instructions given to patient, Instructed on discharge instructions, follow up and referral plans. Demonstrated understanding of instructions, follow-up care. 20:41 Patient left the ED. me1 Signatures: Dispatcher [employer] Yasmin Cortes, RN RN Jose Duque PA PA cp Garcia, Rubi rg4 Delisa Wan bc6 Suzanne Lawler RN RN me1 Corrections: (The following items were deleted from the chart) 17:29 17:27 Chief complaint: Patient states: passing blood X 1 week, with clots, had a iw positive test iw
--- NOTE | 2022-12-23 20:18 | EDPHYS ---
Physician Documentation [facility] Name: Shirley Navarro Age: 32 yrs Sex: Female : 1990 Arrival Date: 12/23/2022 Time: 17:18 Bed 14 Private MD: ED Physician Jono Oconnell HPI: 12/23 17:35 This 32 yrs old Female presents to ER via Ambulatory with complaints of cp Vaginal Bleeding, + Preg <12wks, Abdominal Cramping, Vomiting. 17:35 The patient presents with vaginal bleeding that is with clots, positive home cp test. 17:35 Onset: The symptoms/episode began/occurred 1 week(s) ago. cp 17:35 Associated signs and symptoms: Pertinent negatives: dysuria, fever, vomiting, cp dizziness, lightheaded, syncope, near-syncope. 17:35 The patient's method of control includes left arm implant. Patient presents to ED cp with concern for possible . Reports faint positive home test. Has arm implanted control that in August 2022. Patient reports history of irregular menstrual cycles and hypertension. Reports vaginal bleeding over the past week and being off hypertensive medication for past several months. 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 - Social history:: Smoking status: Patient reports the use of cigarette tobacco products, smokes one pack cigarettes per day. ROS: 17:40 Constitutional: Negative for body aches, chills, fever, poor PO intake. cp 17:40 Eyes: Negative for injury, pain, redness, and discharge. cp 17:40 Cardiovascular: Negative for chest pain, palpitations. 17:40 Respiratory: Negative for cough, shortness of breath, wheezing. 17:40 Abdomen/GI: Negative for abdominal pain, nausea, vomiting, and diarrhea. 17:40 : Positive for vaginal bleeding, Negative for urinary symptoms. 17:40 Neuro: Negative for dizziness, headache, syncope, near syncope, weakness. 17:40 All other systems are negative. Exam: 17:45 Constitutional: The patient appears in no acute distress, alert, awake, non-toxic, well cp developed, well nourished. 17:45 Head/Face: Normocephalic, atraumatic. cp 17:45 Eyes: Periorbital structures: appear normal, Conjunctiva: normal, no exudate, no injection, Sclera: no appreciated abnormality, Lids and lashes: appear normal, bilaterally. 17:45 ENT: External ear(s): are unremarkable, Nose: is normal, Mouth: Lips: moist, Oral mucosa: pink and intact, moist, Posterior pharynx: is normal, airway is patent, no erythema, no exudate. 17:45 Neck: ROM/movement: is normal, is supple, without pain, no range of motions limitations. 17:45 Chest/axilla: Inspection: normal. 17:45 Cardiovascular: Rate: tachycardic, Rhythm: regular. 17:45 Respiratory: the patient does not display signs of respiratory distress, Respirations: normal, no use of accessory muscles, no retractions, labored breathing, is not present, Breath sounds: are clear throughout, no decreased breath sounds, no stridor, no wheezing. 17:45 Abdomen/GI: Inspection: abdomen appears normal, Bowel sounds: active, all quadrants, Palpation: soft, in all quadrants, mild abdominal tenderness, in the right lower quadrant and left lower quadrant. 17:45 Back: pain, is absent, ROM is normal. 17:45 Neuro: Orientation: to person, place \T\ time. Mentation: is normal, Motor: moves all fours, strength is normal, Sensation: is normal, Gait: is steady, at a normal pace, without difficulty. 18:13 ECG was reviewed by the Attending Physician. cp Vital Signs: 17:29 Weight 49.9 kg; Height 5 ft. 2 in. ; iw 17:29 Pulse 139; Resp 19; Temp 98.6; Pulse Ox 100% on R/A; iw 18:30 BP 153 / 100; Pulse 83; Resp 16; Pulse Ox 100% on R/A; me1 20:38 BP 156 / 109; Pulse 83; Resp 18; Pulse Ox 99% on R/A; me1 17:29 Body Mass Index 20.12 (49.90 kg, 157.48 cm) iw MDM: 17:30 Patient medically screened. 18:00 Differential diagnosis: ectopic , threatened Ab, inevitable Ab, complete Ab, cp retained Ab, molar preganancy, ruptured ectopic , urinary tract infection. 20:16 Data reviewed: vital signs, nurses notes, lab test result(s), radiologic studies, cp ultrasound, and as a result, I will discharge patient. 20:16 Care significantly affected by the following chronic conditions: Hypertension. cp Counseling: I had a detailed discussion with the patient and/or guardian regarding the historical points, exam findings, and any diagnostic results supporting the discharge/admit diagnosis, the presence of at least one elevated blood pressure reading (>120/80) during this emergency department visit, lab results, radiology results, the need for outpatient follow up, a family practitioner, to return to the emergency department if symptoms worsen or persist or if there are any questions or concerns that arise at home. 12/23 17:29 Order name: Abo/rh Typing; Complete Time: 18:35 12/23 18:35 Interpretation: Reviewed. 12/23 17:29 Order name: Basic Metabolic Panel; Complete Time: 18:27 12/23 18:27 Interpretation: Normal except: NA 135; K 3.3; GLUC 131; GFR 84. 12/23 17:29 Order name: CBC with Diff; Complete Time: 18:05 12/23 18:05 Interpretation: Normal except: WBC 12.10; NEUT A 8.6. 12/23 17:29 Order name: Test, Urine; Complete Time: 18:05 12/23 18:05 Interpretation: Reviewed. 12/23 17:29 Order name: Quantitative Hcg; Complete Time: 18:27 12/23 18:35 Interpretation: Reviewed. 12/23 17:29 Order name: Urinalysis w/ reflexes; Complete Time: 18:27 12/23 18:36 Interpretation: Normal except: UBLD 2+; UPH 8.0; UPROT 1+; UUROB 1+; UESTR 25. 12/23 17:30 Order name: UDS; Complete Time: 18:27 12/23 18:28 Order name: US Pelvis Complete; Complete Time: 20:16 12/23 17:30 Order name: EKG; Complete Time: 17:31 12/23 17:29 Order name: IV Saline Lock; Complete Time: 17:46 12/23 17:29 Order name: Labs collected and sent; Complete Time: 17:46 12/23 17:29 Order name: NPO; Complete Time: 17:46 12/23 17:30 Order name: EKG - Nurse/Tech; Complete Time: 18:13 12/23 18:05 Order name: Blood Pressure Recheck 12/23 19:52 Order name: Vital Signs: please update vitals to include blood pressure cp EC: Rate is 80 beats/min. Rhythm is regular. [place] interval is normal. QRS interval is normal. cp QT interval is normal. T waves are Inverted in lead aVR. Interpreted by me. Reviewed by me. Administered Medications: 17:46 Drug: NS 0.9% IV 1000 ml Route: IV; Rate: 1 bolus; Site: right antecubital; me1 20:42 Follow up: IV Status: Completed infusion; IV Intake: 1000ml me1 20:32 Drug: Potassium PO Effervescent Tablet 50 mEq Route: PO; me1 20:41 Follow up: Response: No adverse reaction me1 Disposition: 21:01 Co-signature as Attending Physician, Jono Oconnell DO I was immediately available on-site ms3 in the Emergency Department for consultation in the care of the patient. Disposition Summary: 12/23/22 20:17 Discharge Ordered Location: Home cp Problem: new cp Symptoms: have improved cp Condition: Stable cp Diagnosis - Hypertensive heart disease without heart failure cp - Other specified abnormal uterine and vaginal bleeding cp Followup: cp - With: Private Physician - When: 2 - 3 days - Reason: Recheck today's complaints Discharge Instructions: - Discharge Summary Sheet cp - Abnormal Uterine Bleeding cp - Hypertension, Adult cp - Form - Blood Pressure Record Sheet cp - How to Take Your Blood Pressure cp Forms: - Medication Reconciliation Form cp - Thank You Letter cp - Antibiotic Education cp - Prescription Opioid Use cp - Patient Portal Instructions cp - Leadership Thank You Letter cp Signatures: Dispatcher Yasmin Palmer RN RN iw Page, Corey, PA PA cp Jono Oconnell DO DO ms3 Suzanne Lawler RN RN me1 Corrections: (The following items were deleted from the chart) 12/24 18:12/23 17:35 Patient presents to ED with concern for possible . Reports faint cp positive home test. Has arm implanted control that in August 2022. Patient reports history of irregular menstrual cycles and vaginal bleeding over the past week. cp
[2022-12-23] MEDS ORDERED: POTASSIUM 25 MEQ EFFERV TAB ONE (20:40)
[2022-12-23 21:26] VITALS: TEMP 98.6
[2022-12-23 21:29] VITALS: BP 156/109; O2SAT 99
--- NOTE | 2022-12-24 13:02 | EKG ---
Test Date: 2022-12-23 Test Time: 18:07:23 Counselor Education Professor: MEASUREMENT RESULTS: Intervals: Rate: 80 IA: 130 QRSD: 86 QT: 384 QTc: 442 Parks: P: 67 IA: 130 QRS: -15 T: 31 INTERPRETIVE STATEMENTS: Normal sinus rhythm Normal ECG No previous ECG available for comparison Electronically Signed On 12-24-22 13:00:26 CDT by Scot Dietz
== END 2022-12-23 20:41 | disposition home or self-care (01) ==
LOC: ER 17:18
DX: N93.8 Other specified abnormal uterine and vaginal bleeding (principal); I11.9 Hypertensive heart disease without heart failure
CPT/HCPCS: 36415; 76856; 80048; 80307; 81001; 81025; 84702; 85025; 86900; 86901; 93005; 96360; 96361; 99284; J7030

== ENCOUNTER 2023-03-15 22:28 | Emergency (ER) | payer SELFPAY ==
[2023-03-15] MEDS ORDERED: ETOMIDATE 20 MG/10 ML VIAL IV ONE (22:29)
[2023-03-15] MEDS ORDERED: ROCURONIUM 50 MG/5 ML VIAL IV ONE (22:29)
[2023-03-15] MEDS ORDERED: LORazepam 2 MG/ML VIAL ONE ×2 (22:47→23:21)
[2023-03-15 23:05] LABS: Absolute Lymphocytes (CBC) 2.5 K/uL (0.7-4.9); Hematocrit 40.6 % (36.0-45.0); Lymphocytes % 17.1 % (15.3-44.8); MCV 98.2 fL (80-100); MPV 8.5 fL (7.6-11.3); Platelets 226 thou/uL (152-406); RBC Red Blood Cell Count 4.13 M/uL (3.86-4.86)
[2023-03-15 23:13] LABS: Protime INR 0.94
[2023-03-15] MEDS ORDERED: D5 0.9 NS 1,000 ML IV ONE (23:13)
[2023-03-15] MEDS ORDERED: ONDANSETRON 4 MG/2 ML VIAL ONE (23:15)
--- OUTSIDE RECORDS SUMMARY | 2023-03-15 23:25 | XMS REPORT | Continuity of Care Document ---
:1990 Author Organization [facility] t Address [address] [facility] [place] [address] Care Team Providers Name Role Phone Unavailable Unavailable Unavailable Payers Payer Name Policy Type Policy Number Effective Date Expiration Date S ource Problems This patient has no known problems. Allergies, Adverse Reactions, Alerts Allergy Allergy Status Severity Reaction(s) Onset Inactive Treating Comm ents Source Name Type Date Date Clinician latex DA Active [place] [facility] 09-23 [facility] 00:00: [address] latex DA Active MO RASH [facility] 09-23 [facility] 00:00: [address] Medications This patient has no known medications. Procedures This patient has no known procedures. Encounters Start End Encounter Admission Attending Care Care Encounter Source Date/Time Date/Time Type Type Clinicians Facility Department ID 2019-12-20 Inpatient [facility] ER [id number] [facility] 14:24:[address] [place] [address] Results Test Description Test Time Test Comments Results Result [facility] e Comments - CTA CHEST FOR PE 2019-12-20 Patient Name: 19:28:00 DELONTE MCBRIDE Unit No: [id number] EXAMS: CPT CODE: [id number] CTA CHEST FOR PE 01297 Reason: PE PROTOCOL History: PE PROTOCOL. Technique: [...] by: Fab Chirinos MD CC: Belle Diggs CANVAS CUTTER; Ricardo Alvarez MD Technologist: Ludy Ivey CT Trscrpt Dt/ (1927)t.SDR.MMC3 Orig Print D/T: S: 12/20/2019 (1930) CTDI: DLP: [facility] NAME: DELONTE MCBRIDE [id number] [facility] PHYS: PEPDA. [place] [address] : 1990 AGE: 29 SEX: F LOC: D.NER PHONE #: [phone] EXAM DATE: 12/20/2019 STATUS: REG ER FAX [...] D-Dime r result. - XR CHEST 1 [id number] 17:33:00 Patient Name: DELONTE MCBRIDE Unit No: [id number] EXAMS: CPT CODE: [id number] XR CHEST 1 V 13028 Reason: TACHYCARDIA, DYSPNEA History: TACHYCARDIA, DYSPNEA. Technique: Single view of the chest Com parison: None Findings: Normal cardiomediastinal silhouette. Clear lungs. Impression: Unremarkable chest radiograph. at 1733 Reported and signed by: Fab Chirinos MD CC: Belle Diggs CANVAS CUTTER; Ricarod Alvarez MD Technologist: Ludy THOMAS Trscrpt Dt/ (173)t.THIAGOR.MMC3 Orig Print D/T: S: 12/20/2019 (1736) [facility] NAME: DELONTE MCBRIDE [id number] [facility] PHYS: [email or web address] - [place] [address] : 1990 AGE: 29 SEX: F LOC: [place]ING[place] PHONE #: [phone] EXAM DATE: 12/20/2019 STATUS: PRE ER FAX [...] culture: Flank PainURINE SOURCE: Clean CatchCOMPREHENSIVE METABOLIC [id number] 17:07:00 Test Item Value Reference Range Interpretation [...] 50-136 H TOTAL (test code = ALKP) [id number] 17:07:00 Test Item Value Reference Range Interpretation Comments LIPASE (test code = LIP) 89 Units/L 73-393 N NT PRO-BRAIN NATRIURETIC [id number] 17:07:00 Test Item Value Reference Range Interpretation Comments NT PRO-BRAIN 49 PG/ML 0-125 N Results of this assay NATRIURETIC PEPTI (test meth od may be falsely code = PROBNP) depressed ore levated if patient is t aking high doses of B iotin. [id number] 17:07:00 Test Item Value Reference Range Interpretation [...] high dos es of Biotin. CBC W/AUTO [id number] 16:56:00 Test Item Value Reference Range Interpretation [...] 0.03 x10 3/uL 0.0-0.2 N HCG SERUM [id number] 16:55:00 Test Item Value Reference Range Interpretation [...] assay. Notes Date/Time Note Provider Source 2019-12-20 17:09:00 [id number] [address] [place], [place] PATIENT NAME: DELONTE MCBRIDE ADMIT DATE: 12/20/19ACCOUNT NO: [id number] ROOM NO: AGE: 29 REPORT TYPE: ELECTROCARDIOGRAM SEX: F : [birth year]ADMITTING PHYSICIAN: ATTENDING PHYSICIAN:Ricardo Alvarez MD Order:[id number] Reason : TACHYCARDIA Anisa t Date/Time Stamp:WedDec 20 2019 17:09:01Blood Pressure : / mmHGVent. Rate : 083 BPM Atrial Rate : 083 BPM P-R Int : 128 ms QRS Dur : 092 ms QT Int : 388 ms P-R-T Axes : 064 -09 020 degrees QTc Int : 455 ms Normal sinus rhythm wit h sinus arrhythmiaNormal ECGNo previous ECGs availableConfirmed by RICARDO ALVAREZ DO ([id number]), editor in chief newspaper TYE BEASLEY ([id number]) on02/16/2020 2:35:26 PM Referred By: Self Referred Confirmed by:RICARDO ALVAREZ DO at 1436 PATIENT NAME: DELONTE MCBRIDE .[id number] AVAvailable for patient [id number]:37:00 2019-12-20 14:57:00 [id number]:57:[address] [facility] PROVID[facility] REPORTREPORT#:[id number] REPORT STATUS: SignedDATE:12/20/19 TIME: 1456 PATIENT: DELONTE MCBRIDE UNIT #: [id number]#: [id number] ROOM/BED:AGE: 29 SEX: F PCP PHYS: N o Primary or Family PhysicianSERVICE AUTHOR: Ricardo Alvarez MD * ALL edits or amendments must be made on the electronic/computer document * Ricardo Alvarez 12/20/19 1457:HPI-Chest Pain 40 and Over GeneralConfirmed Patient Yes Past Medical Histor y - AdultStated Complaint SOBAllergiesCoded Allergies:latex (Intermediate, RASH 09/24/15) Drug Use Denies recreational drugs Patient Discharge Departure Vital Signs/ConditionVital SignsFirst Documented: Result Date Time Pulse Ox 99 12/19 1426 B/P 189/95 09/ 1426 B/P Mean 12 6 12/19 1426 O2 Delivery Room air 12/19 1426 Temp 36.9 12/19 1426 Pulse 132 / 1426 Resp 22 12/19 1426 Last Documented: Result Date Time Pulse Ox 99 12/19 1426 B/P 189/95 12/19 1426 B/P Mean 126 /09 1426 O2 Delivery Room air 12/19 1426 Temp 36.9 12/19 1426 Pulse 132 /09 1426 Resp 22 12/19 1426 All vital signs available at the time of this entry have been reviewed. Belle Castillo 12/20/19 1645:HPI-Chest Pain 4 0 and Over GeneralInitial Greet Date/Time 12/20/19 1457 PresentationChief Complaint Chest pain, Shortness of breathHx Obtained From PatientSudde n in Onset? YesOnset Occurred Today (1315)Symptom Duration Since onsetLocation SubsternalQuality Tightness)( Migration/Movement NoneSeverity: Onset MildSeverity: Current No pain currentlyExacerbated by NothingRelieved by Rest ContextPregnancy/Sexual Hx Last Menstrual Period 11/28/19 Free Text HPI NotesFree Text HPI Yshlt58-bxrf-iqv female patient presents to the ER today. She reports that at approximately 115 after returning from her lunch break she had a panic attack atwork. The patient states that she had shortness of breath. She reports feelingher heart was beating rather fast. After a while she noted that her hands were cramping. She felt painful electric shocks to her arms and legs.I have evaluated the patient 2 hours after her arrival in the ER. She states she is feeling muc h better at this point. Her heart rate continues t o be in the1 teens to 120s. She states she had not eaten anything for lunch or breakfast. 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 She is a daily smoker. The patient does admit to drinking 1 to 2-24 ounce beers daily. She also smokes marijuana. She denies any nausea or vomiting. Th e patient has a Nexplanon implant in her arm. Risk-Chest Pain 40 and Over Risk Stratification) ( Coronary Artery Disease Risk factors reviewed, N o risk factors)( Thoracic Aortic Dissection Risk factors reviewed, No risk factors)( Pulmonary Embolism Risk factors reviewed, No risk factors) ( AMI-Aspirin Aspirin Last 24 Hrs None Contraindications None)( HEART for MACE )( HEART for MACE Response Value History Low index of suspicion 0 Age Age under 45 0 Risk Factors for CAD No risk factors known 0 Total 0 Physical Exam Vital SignsVital SignsFirst Documented: Result Date Time Pulse Ox 99 12/19 1426 B/P 189/95 12/19 1426 B/P Mean 126 12/19 1426 O2 Delivery Room air 12/19 1426 Temp 36.9 12/19 142 6 Pulse 132 12/19 1426 Resp 22 12/19 1426 Last Documented: Result Date Time Pulse Ox 99 12/19 1426 B/P 189/95 12/19 1426 B/P Mean 126 12/19 1426 O2 Delivery Room air 12/19 1426 Temp 36.9 12/19 1426 Pulse 132 12/19 1426 Resp 22 12/19 1426 Review of Vital Signs Reviewed Focused PEGeneral/Const General/Const Awake, Alert, N o acute distress, Cooperative, Not toxic appearingResp/Chest Respiratory/Chest Atraumatic, Breath sounds NL, No respiratory distressCardiovascular Heart Rate/Rhythm Tachycardia. Abdomen/GI Abdomen/GI Atraumatic , Soft, Non-tender, BS normoactive, No distentionM S Back Back No CVA tendernessSkin Skin Atraumatic, Color NL, Warm, Dry, IntactNeurologic Neurologic Oriented X3, Speech NL, Memory NLPsychiatric Psychiatric Affect NL, Mood NL Interpretation Diagnostics Lab Results InterpretationResultsLaboratory Tests 12/20/19 143:[Embedded Image Not Available]Laboratory Tests: 12/19 12/19 1712 1435 Chemistry HCG, Ryan l (NEGATIVE) NEGATIVE Urines Ur Spec Description Clean Catch Urine Color (YELLOW) YELLOW Urine Appearance (CLEAR) CLEAR Urine pH (5.5 - 7.0) 8.0 H Ur Specific [place] (1.001 - 1.035) 1.010 Urine Protein (NEGATIVE [...] met Urine Comment VOLUME 10-12 ML 12/19 143 Chemistry Sodium (133 - 145 MMOL/L) 137 [...] 3/uL) 334 MPV (7.4 - 10.4 FL) 11. 1 H Neut % (Auto) (42 - 86 %) 75.4 Lymph % (Auto) (24 - 44 %) 17.8 L [place] % (Auto) (0.0 - 4.0 %) 6.1 H Eos % (Auto) (0.0 - 2.7 %) 0.4 Baso % (Auto) (0.0 - 0.5 %) 0.3 Eos # (Auto) (0.0 - 0.5 x10 3/uL) 0.04 Baso # (Auto) (0.0 - 0.2 x10 3/uL ) 0.03 Absolute Neuts (auto) (1.8 - 7.7 x10 3/uL) 8.60 H Absolute Lymphs (auto) (1.0 - 4.8 x10 3/uL) 2.02 Absolute Monos (auto) (0.0 - 0.8 x10 3/uL) 0.69 Recent Impressions:RADIOLOGY - XR CHEST 1 V 12/19 1718 Report Impression - Status: SIGNED Entered: 12/20/2019 1736 Impression:Unremarkable chest radiograph.Impression By: Larry Chirinos [facility] SCAN - CTA CHEST FOR PE 12/19 1840 Report Impression - Status: SIGNED Entered: 12/20/2019 1931 Impression: 1. No CT evidence fo r pulmonary embolism.Impression By: Larry Chirinos MD Re-Evaluation [facility] ED CourseMedication(s) OrderedMedication(s) Ordered:Antihistamine Drugs Sig/Dillon Start time Last Medication Dose Route Stop Time Status Admin Diphenhydramine HCl 25 MG X1ED STA 12/19 1813 DC 12/19 IV 12/19 1814 1825 Diagnostic Agents Sig/Dillon Start time Last Medication Dose Route Stop Time Status Admin Iopamidol 0 .STK-ME D ONE 12/19 1759 DC 12/19 IV 1847 Electrolytic, Caloric, And Dyana Sig/Dillon Start time Last Medication Dose Route Stop Time Status Admin Sodium Chloride 50 ML .STK-MED ONE 12/19 1841 DC 12/19 IV 1846 Potassium 40 MEQ X1ED STA 12/19 1722 DC 12/19 Bicarbonate/Citric PO 12/19 1723 1826 Acid Sodium Chloride 1,000 ML X1ED STA 9 1645 DC 12/19 IV 12/19 1744 1710 Hormones And Synthetic Substit Sig/Dillon Start time Last Medication Dose Route Stop Time Status Admin Methylprednisolone 125 MG X1ED STA 12/19 1813 DC 12/19 Sodium Succinate IV 12/19 1814 1825 Patien t Discharge Departure Clinical ImpressionClinical ImpressionPrimary Impression: Hypokalemia Disposition DecisionDischarge )( Discharged to Home Yes )( Time 1933 )( Date 12/20/19 Discharge/Care PlanCounseled Regarding Diagnosis , Lab results, Imaging studies, Need for follow-up,When to return to EDPrescriptions Reviewed Risks, Benefits, Alternative treatment at 1935RPT #:[id number] OF REPORTEDEmergency department lazuve7018-08-66N85:57:00D.[id number] a ilable for patient [id number]:35:53 2019-12-20 14:57:00 [id number]:57:[address] [facility] PROVID[facility] REPORTREPORT#:[id number] REPORT STATUS: SignedDATE:12/20/19 TIME: 1457 PATIENT: DELONTE MCBRIDE UNIT #: [id number]#: [id number] ROOM/BED:AGE: 29 SEX: F PCP PHYS: N o Primary or Family PhysicianSERVICE AUTHOR: Ricardo Alvarez MD * ALL edits or amendments must be made on the electronic/computer document * Ricardo Alvarez 12/20/19 1457:HPI-Chest Pain 40 and Over GeneralConfirmed Patient YesInitial Greet Date/Time 12/20/191456 Review of Systems Focuse d Review of SystemsConstitutionalDenies: Chills, Fever. RespiratoryReports: Shortness of breath. CardiovascularReports: Chest pain, Palpitations. GIDenies: Abdominal pain, Nausea, Vomiting. MusculoskeletalDenies: Back pain, Lumbar pain, Myalgia, Neck pain, Thoracic pain. SkinDenies: Diaphoresis. NeurologicDenies: Dizziness, Generalized weakness, Headache, Lightheaded, Numbness. Past Medical History - AdultStated Complaint SOBAllergiesCoded Allergies:latex (Intermediate, RASH 09/24/15) Review of Nursing Notes Rev avail, and agreeDrug Use Denies recreational drugs Interpretation Diagnostics La b Results Interpretation Lab StatementLaboratory studies reviewed and considered in the medical decision-making. Belle Castillo 12/20/19 1645:HPI-Chest Pain 40 and Over PresentationChie f Complaint Chest pain, Shortness of breathHx Obtained From PatientSudden in Onset? YesOnset Occurred Today (1315)Symptom Duration Since onsetLocation SubsternalQuality Tightness)( Migration/Movement NoneSeverity: Onset MildSeverity: Current No pain currentlyExacerbated by NothingRelieved by Rest ContextPregnancy/Sexual Hx Last Menstrual Period 11/28/19 Free Text HPI NotesFree Text HPI Yadqi08-lquz-nlv female patient presents to the ER today. She reports that at approximately 115 after returning from her lunch break she had a panic attack atwork. The patient states that she had shortness of breath. She reports feelingher heart was beating rather fast. After a while she noted that her hands were cramping. She felt painful electric shocks to her arms and legs.I have evaluated the patient 2 hours after her arrival in the ER. She states she is feeling muc h better at this point. Her heart rate continues t o be in the1 teens to 120s. She states she had not eaten anything for lunch or breakfast. 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 She is a daily smoker. The patient does admit to drinking 1 to 2-24 ounce beers daily. She also smokes marijuana. She denies any nausea or vomiting. Th e patient has a Nexplanon implant in her arm. Risk-Chest Pain 40 and Over Risk Stratification) ( Coronary Artery Disease Risk factors reviewed, N o risk factors)( Thoracic Aortic Dissection Risk factors reviewed, No risk factors)( Pulmonary Embolism Risk factors reviewed, No risk factors) ( AMI-Aspirin Aspirin Last 24 Hrs None Contraindications None)( HEART for MACE )( HEART for MACE Response Value History Low index of suspicion 0 Age Age under 45 0 Risk Factors for CAD No risk factors known 0 Total 0 Physical Exa m Vital SignsVital SignsFirst Documented: Result Date Time Pulse Ox 99 12/19 1426 B/P 189/95 1426 B/P Mean 126 12/19 1426 O2 Delivery Room air 12/19 142 Temp 98.5 12/19 1426 Pulse 132 12/19 1426 Resp 22 12/19 1426 Last Documented: Result Date Time Pulse Ox 98 12/19 1929 B/P 136/83 12/19 1929 B/P Mean 100 12/19 1929 O2 Delivery Room air 12/19 1929 Temp 98.1 12/19 1929 Pulse 91 12/19 1929 Resp 18 12/19 1929 Review of Vital Signs Reviewed Focused PEGeneral/Const General/Const Awake, Alert, N o acute distress, Cooperative, Not toxic appearingResp/Chest Respiratory/Chest Atraumatic, Breath sounds NL, No respiratory distressCardiovascular Heart Rate/Rhythm Tachycardia. Abdomen/GI Abdomen/GI Atraumatic , Soft, Non-tender, BS normoactive, No distentionM S Back Back No CVA tendernessSkin Skin Atraumatic, Color NL, Warm, Dry, IntactNeurologic Neurologic Oriented X3, Speech NL, Memory NLPsychiatric Psychiatric Affect NL, Mood NL Interpretation Diagnostics Lab Results InterpretationResultsLaboratory Tests 12/20/19 1435:[Embedded Image Not Available]Laboratory Tests: 12/19 12/19 1712 1435 Chemistry HCG, Ryan l (NEGATIVE) NEGATIVE Urines Ur Spec Description Clean Catch Urine Color (YELLOW) YELLOW Urine Appearance (CLEAR) CLEAR Urine pH (5.5 - 7.0) 8. 0 H Ur Specific [place] (1.001 - 1.035) 1.010 Urine Protein (NEGATIVE [...] Chemistry Sodium (133 - 145 MMOL/L) 137 Potassiu m (3.6 - 5.2 MMOL/L) 3.0 L Chloride (100 - 108 MMOL/L) 96 L Carbon Dioxide (22 - 32 MMOL/L) 18 L BUN (6 - 20 MG/DL) 8 Creatinine (0.60 - 1.00 MG/DL) 1.09 H Estimated GFR (MDRD) (71 - 165) 60 L Glucose (65 - 99 MG/DL) 189 H Calcium (8.7 - 10.5 MG/DL) 9.7 Total Bilirubin (0.0 - 1.0 MG/DL ) 0.6 AST (15 - 37 Units/L) 17 [...] Albumin/Globulin Ratio (1.1 - 2.2) 1.2 Lipase (7 3 - 393 Units/L) 89 Coagulation D-Dimer Quant [...] - 86 %) 75.4 Lymph % (Auto) (2 4 - 44 %) 17.8 L [place] % (Auto) (0.0 - 4.0 %) 6.1 H Eos % (Auto) (0.0 - 2.7 %) 0.4 Baso % (Auto) (0. 0 - 0.5 %) 0.3 Eos # (Auto) (0.0 - 0.5 x10 3/uL) 0.04 Baso # (Auto) (0.0 - 0.2 x10 3/uL) 0.03 Absolute Neuts (auto) (1.8 - 7.7 x10 3/uL) 8.60 H Absolute Lymphs (auto) (1.0 - 4.8 x10 3/uL) 2.02 Absolute Monos (auto) (0.0 - 0.8 x10 3/uL) 0.69 Recent Impressions:RADIOLOGY - XR CHEST 1 V 9 1718 Report Impression - Status: SIGNED Entered: 12/20/2019 1736 Impression:Unremarkable chest radiograph.Impression By: Larry Chirinos MDCAT SCAN - CTA CHEST FOR PE 12/19 1840 Report Impression - Status: SIGNED Entered: 12/20/2019 1931 Impression: 1. No CT evidence for pulmonary embolism.Impression By: Larry Chirinos MD Re-Evaluation [facility]DM E D CourseMedication(s) OrderedMedication(s) Ordered:Antihistamine Drugs Sig/Dillon Start time Last Medication Dose Route Stop Time Status Admi n Diphenhydramine HCl 25 MG X1ED STA 12/19 1813 DC 12/19 IV 12/19 1814 1825 Diagnostic Agents Sig/Dillon Start time Last Medication Dose Route Stop Time Status Admin Iopamidol 0 .STK-MED ONE 12/19 1759 DC 12/19 IV 1847 Electrolytic, Caloric, And Dyana Sig/Dillon Start time Last Medication Dose Route Stop Time Status Admin Sodium Chloride 50 ML .STK-MED ONE 12/19 1841 DC 12/19 IV 1846 Potassium 40 MEQ X1ED STA 12/19 1722 DC 12/19 Bicarbonate/Citric PO 12/19 1723 1826 Acid Sodium Chloride 1,000 ML X1ED STA 9 1645 DC 12/19 IV 12/19 1744 1710 Hormones And Synthetic Substit Sig/Dillon Start time Last Medication Dose Route Stop Time Status Admin Methylprednisolone 125 MG X1ED STA 12/19 1813 DC 12/19 Sodium Succinate IV 12/19 181 1825 Patien t Discharge Departure Vital Signs/ConditionVital SignsFirst Documented: Result Date Time Pulse Ox 99 12/19 1426 B/P 189/95 12/19 1426 B/P Mean 12 6 12/19 1426 O2 Delivery Room air 12/19 1426 Temp 98.5 12/19 1426 Pulse 132 12/19 1426 Resp 22 12/19 1426 Last Documented: Result Date Time Pulse Ox 98 12/19 193 B/P 136/83 12/19 193 B/P Mean 100 12/19 193 O2 Delivery Room air 12/19 1929 Temp 98.1 12/19 193 Pulse 91 12/19 193 Resp 18 12/19 1929 All vital signs available at the time of this entry have been reviewed. Clinical ImpressionClinical ImpressionPrimary Impression: Hypokalemia Disposition DecisionDischarge )( Discharged to Home Yes )( Time 1933 )( Date 12/20/19 Discharge/Care PlanCounseled Regarding Diagnosis, Lab results, Imaging studies, Need for follow-up,When to return to EDPrescriptions Reviewed Risks, Benefits, Alternative treatment at 1935RPT #:[id number] OF REPORTEDEmerbaptist health [facility] center y department [id number]:57:00D.[id number] a ilable for patient [id number]:28:24 2019-12-20 14:57:00 [id number]:57:[address] [facility] PROVID[facility] REPORTREPORT#:[id number] REPORT STATUS: SignedDATE:12/20/19 TIME: 1456 PATIENT: DELONTE MCBRIDE UNIT #: [id number]#: [id number] ROOM/BED:AGE: 29 SEX: F PCP PHYS: N o Primary or Family PhysicianSERVICE AUTHOR: Ricardo Alvarez MD * ALL edits or amendments must be made on the electronic/computer document * Ricardo Alvarez 12/20/191456:HPI-Chest Pain 40 and Over GeneralConfirmed Patient YesInitial Greet Date/Time 12/20/191456 Review of Systems Focuse d Review of SystemsConstitutionalDenies: Chills, Fever. RespiratoryReports: Shortness of breath. CardiovascularReports: Chest pain, Palpitations. GIDenies: Abdominal pain, Nausea, Vomiting. MusculoskeletalDenies: Back pain, Lumbar pain, Myalgia, Neck pain, Thoracic pain. SkinDenies: Diaphoresis. NeurologicDenies: Dizziness, Generalized weakness, Headache, Lightheaded, Numbness. Past Medical History - AdultStated Complaint SOBAllergiesCoded Allergies:latex (Intermediate, RASH 09/24/15) Review of Nursing Notes Rev avail, and agreeDrug Use Denies recreational drugs Interpretation Diagnostics La b Results Interpretation Lab StatementLaboratory studies reviewed and considered in the medical decision-making. Patient Discharge Departure Vital Signs/ConditionCondition Stable Belle Castillo 12/20/19 1645:HPI-Chest Pain 4 0 and Over PresentationChief Complaint Chest pain, Shortness of breathHx Obtained From PatientSudde n in Onset? YesOnset Occurred Today (1315)Symptom Duration Since onsetLocation SubsternalQuality Tightness)( Migration/Movement NoneSeverity: Onset MildSeverity: Current No pain currentlyExacerbated by NothingRelieved by Rest ContextPregnancy/Sexual Hx Last Menstrual Period 11/28/19 Free Text HPI NotesFree Text HPI Osmsn19-stnn-rfi female patient presents to the ER today. She reports that at approximately 115 after returning from her lunch break she had a panic attack atwork. The patient states that she had shortness of breath. She reports feelingher heart was beating rather fast. After a while she noted that her hands were cramping. She felt painful electric shocks to her arms and legs.I have evaluated the patient 2 hours after her arrival in the ER. She states she is feeling muc h better at this point. Her heart rate continues t o be in the1 teens to 120s. She states she had not eaten anything for lunch or breakfast. 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 She is a daily smoker. The patient does admit to drinking 1 to 2-24 ounce beers daily. She also smokes marijuana. She denies any nausea or vomiting. Th e patient has a Nexplanon implant in her arm. Risk-Chest Pain 40 and Over Risk Stratification) ( Coronary Artery Disease Risk factors reviewed, N o risk factors)( Thoracic Aortic Dissection Risk factors reviewed, No risk factors)( Pulmonary Embolism Risk factors reviewed, No risk factors) ( AMI-Aspirin Aspirin Last 24 Hrs None Contraindications None)( HEART for MACE )( HEART for MACE Response Value History Low index of suspicion 0 Age Age under 45 0 Risk Factors for CAD No risk factors known 0 Total 0 Physical Exa m Vital SignsVital SignsFirst Documented: Result Date Time Pulse Ox 99 [...] Pulse 91 12/19 1929 Resp 18 12/19 193 0 Review of Vital Signs Reviewed Focused PEGeneral/Const General/Const Awake, Alert, N o acute distress, Cooperative, Not toxic appearingResp/Chest Respiratory/Chest Atraumatic, Breath sounds NL, No respiratory distressCardiovascular Heart Rate/Rhythm Tachycardia. Abdomen/GI Abdomen/GI Atraumatic , Soft, Non-tender, BS normoactive, No distentionM S Back Back No CVA tendernessSkin Skin Atraumatic, Color NL, Warm, Dry, IntactNeurologic Neurologic Oriented X3, Speech NL, Memory NLPsychiatric Psychiatric Affect NL, Mood NL Interpretation Diagnostics Lab Results InterpretationResultsLaboratory Tests 12/20/19 1435:[Embedded Image Not Available]Laboratory Tests: 12/19 12/19 1712 1435 Chemistry HCG, Ryan l (NEGATIVE) NEGATIVE Urines Ur Spec Description Clean Catch Urine Color (YELLOW) YELLOW Urine Appearance (CLEAR) CLEAR Urine pH (5.5 - 7.0) 8.0 H Ur Specific [place] (1.001 - 1.035) 1.010 Urine Protein (NEGATIVE [...] 3/uL) 334 MPV (7.4 - 10.4 FL) 11. 1 H Neut % (Auto) (42 - 86 %) 75.4 Lymph % (Auto) (24 - 44 %) 17.8 L [place] % (Auto) (0.0 - 4.0 %) 6.1 H Eos % (Auto) (0.0 - 2.7 %) 0.4 Baso % (Auto) (0.0 - 0.5 %) 0.3 Eos # (Auto) (0.0 - 0.5 x10 3/uL) 0.04 Baso # (Auto) (0.0 - 0.2 x10 3/uL ) 0.03 Absolute Neuts (auto) (1.8 - 7.7 x10 3/uL) 8.60 H Absolute Lymphs (auto) (1.0 - 4.8 x10 3/uL) 2.02 Absolute Monos (auto) (0.0 - 0.8 x10 3/uL) 0.69 Recent Impressions:RADIOLOGY - XR CHEST 1 V 12/19 5518 Report Impression - Status: SIGNED Entered: 12/20/2019 3276 Impression:Unremarkable chest radiograph.Impression By: t.[email or web address] Chirinos [facility] SCAN - CTA CHEST FOR PE 12/20 1839 Report Impression - Status: SIGNED Entered: 12/20/20191930 Impression: 1. No CT evidence fo r pulmonary embolism.Impression By: Larry Chirinos MD Re-Evaluation [facility] ED CourseMedication(s) OrderedMedication(s) Ordered:Antihistamine Drugs Sig/Dillon Start time Last Medication Dose Route Stop Time Status Admin Diphenhydramine HCl 25 MG X1ED STA 12/19 1813 DC 12/19 IV 12/19 1814 1825 Diagnostic Agents Sig/Dillon Start time Last Medication Dose Route Stop Time Status Admin Iopamidol 0 .STK-ME D ONE 12/19 1759 DC 12/19 IV 1847 Electrolytic, Caloric, And Dyana Sig/Dillon Start time Last Medication Dose Route Stop Time Status Admin Sodium Chloride 50 ML .STK-MED ONE 12/19 1841 DC 12/19 IV 1846 Potassium 40 MEQ X1ED STA 12/19 1722 DC 12/19 Bicarbonate/Citric PO 12/19 1723 1826 Acid Sodium Chloride 1,000 ML X1ED STA 9 1645 DC 12/19 IV 12/19 1744 1710 Hormones And Synthetic Substit Sig/Dillon Start time Last Medication Dose Route Stop Time Status Admin Methylprednisolone 125 MG X1ED STA 12/19 1813 DC 12/19 Sodium Succinate IV 12/19 1814 1825 Patien t Discharge Departure Vital Signs/ConditionVital SignsFirst Documented: Result Date Time Pulse Ox 99 12/19 1426 B/P 189/95 12/19 1426 B/P Mean 126 12/19 1426 O2 Delivery Room air 12/19 1426 Temp 98.5 12/19 1426 Pulse 132 12/19 1426 Resp 22 12/19 1426 Last Documented: Result Date Time Pulse Ox 98 12/19 1929 B/P 136/83 12/19 1929 B/ P Mean 100 12/19 1929 O2 Delivery Room air 12/19 1929 Temp 98.1 12/19 1929 Pulse 91 12/19 1929 Resp 18 12/19 1929 All vital signs available at the time of this entry have been reviewed. Clinical ImpressionClinical ImpressionPrimary Impression: Hypokalemia Disposition DecisionDischarge )( Discharged to Home Yes )( Time 1933 )( Date 12/20/19 Discharge/Care PlanCounseled Regarding Diagnosis, Lab results, Imaging studies, Need for follow-up,When to return to EDPrescriptions Reviewed Risks, Benefits, Alternative treatment at 1935Electronically Signed by Ricardo Alvarez MD 12/22/19 at 1035RPT #:[id number] OF REPORTEDEmernorth metro medical centercy department [id number] a ilable for patient [id number]
[2023-03-15 23:57] LABS: ALT/SGPT 187 U/L (13-56); AST/SGOT 135 U/L (15-37); Albumin 3.8 g/dL (3.4-5.0); Alkaline Phosphatase 155 U/L (45-117); BUN Blood Urea Nitrogen 4 mg/dL (7-18); Bicarbonate 23 mEq/L (21-32); Bilirubin Direct 0.1 mg/dL (0-0.2); Bilirubin Indirect, Calculated 0.3 mg/dL (0.2-0.8); Bilirubin Total 0.4 mg/dL (0.2-1.0); Glomerular Filtration Rate 109 ml/min (=/>90); Glucose Level 125 mg/dL (74-106); Protein, Total 7.5 g/dL (6.4-8.2); Sodium Level 144 mEq/L (136-145)
[2023-03-16] MEDS ORDERED: ZIPRASIDONE MESYLA 20 MG/VIAL IM ONE (00:01)
[2023-03-16] MEDS ORDERED: WATER FOR INJ,STERILE 10 ML ONE (00:01)
[2023-03-16] MEDS ORDERED: THIAMINE 200 MG/2 ML INJ ONE (00:42)
[2023-03-16 00:43] LABS: Specific Gravity 1.005 (1.005-1.030)
[2023-03-16] MEDS ORDERED: NA CHLORIDE 0.9% 50 ML ONE (00:43)
[2023-03-16 00:56] LABS: Barbiturates NEGATIVE (NEGATIVE); Benzodiazepines NEGATIVE (NEGATIVE); Cocaine NEGATIVE (NEGATIVE); METHAMPHETAM NEGATIVE (NEGATIVE); Methadone NEGATIVE (NEGATIVE); Opiates NEGATIVE (NEGATIVE); Phencyclidine NEGATIVE (NEGATIVE); THC Cannibis POSITIVE (NEGATIVE)
[2023-03-16] MEDS ORDERED: NA CHLORIDE 0.9% 1,000 ML ONE (01:03)
[2023-03-16] MEDS ORDERED: MIDAZOLAM HCL 5 ML ONE (01:03)
[2023-03-16] MEDS ORDERED: SUCCINYLCHOLINE 20 MG/ML (10 ML) IV ONE (02:24)
[2023-03-16] MEDS ORDERED: ETOMIDATE 20 MG/10 ML VIAL IV ONE (02:24)
--- NOTE | 2023-03-16 02:30 | EDPHYS ---
Physician Documentation [facility] Name: Shirley Navarro Age: 32 yrs Sex: Female : 1990 Arrival Date: 03/15/2023 Time: 22:28 Bed 2 Private MD: ED Physician Leroy Alvarez HPI: 03/15 22:34 This 32 yrs old Female presents to ER via Unassigned with complaints of sp4 intoxication. syncope as well. 22:34 32-year-old female who was found by her significant other today passed out on the sp4 couch. On awakening patient did not make any sense acted confused and EMS was called. EMS reported GCS of 11, patient is not speaking refusing to communicate . Patient is tachycardic heart rate 150 blood pressure 91/59. Patient reportedly drank sixpack of beer and use synthetic cannabis. No similar prior intoxication in the past. On arrival patient is awake but refuses to provide at history and does not communicate. She is tachycardic. . 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 - Social history:: Smoking status: Patient denies any tobacco usage or history of. - Family history:: not pertinent. - Code Status:: Full code. ROS: 22:36 Constitutional: Negative for fever, chills, and weight loss, positive for intoxication sp4 positive for syncope. Additional ROS not available 22:36 All other systems are negative, 22:36 Unable to obtain ROS due to altered mental status, Exam: 22:36 Constitutional: This is a well developed, well nourished patient who is awake, sp4 patient is noncommunicative at this time. Head/Face: Normocephalic, atraumatic. Eyes: Pupils equal round and reactive to light, extra-ocular motions intact. Lids and lashes normal. Conjunctiva and sclera are not injected. Cornea within normal limits. Periorbital areas with no swelling, redness, or edema. ENT: Nares patent. No nasal discharge, no septal abnormalities noted. Tympanic membranes are normal and external auditory canals are clear. Oropharynx with no redness, swelling, or masses, exudates, or evidence of obstruction, uvula midline. Mucous membranes moist. Neck: Trachea midline, no thyromegaly or masses palpated, and no cervical lymphadenopathy. Supple, full range of motion without nuchal rigidity, or vertebral point tenderness. Chest/axilla: Normal chest wall appearance and motion. Nontender with no deformity. No lesions are appreciated. Cardiovascular: Tachycardia at 150. Mild hypotension. no gallops, murmurs, or rubs. Normal PMI, no JVD. No pulse deficits. Respiratory: Lungs have equal breath sounds bilaterally, clear to auscultation and percussion. No rales, rhonchi or wheezes noted. No increased work of breathing, no retractions or nasal flaring. Abdomen/GI: Soft, non-tender, with normal bowel sounds. No distension or tympany. No guarding or rebound. No evidence of tenderness throughout. Back: No spinal tenderness. No costovertebral tenderness. Skin: Warm, dry with normal turgor. Normal color with no rashes, no lesions, and no evidence of cellulitis. MS/ Extremity: Pulses equal, no cyanosis. Neurovascular intact. Full, normal range of motion. Neuro: Awake and alert, GCS 15, oriented to person, place, time, and situation. Cranial nerves II-XII grossly intact. Motor strength 5/5 in all extremities. Sensory grossly intact. Psych: Awake, alert, with orientation to person, place and time. Behavior, mood, and affect are within normal limits 23:18 ECG was reviewed by the Attending Physician. EKG at 2246. Sinus tachycardia at a rate sp4 of 127. Otherwise normal EKG Vital Signs: 22:28 BP 179 / 141; Pulse 129; Resp 20; Temp 99(TE); Pulse Ox 100% on R/A; la4 22:39 BP 179 / 141; Pulse 126; Resp 20; Pulse Ox 100% ; la4 22:45 BP 169 / 125; Pulse 20; Resp 20; Pulse Ox 100% on R/A; la4 23:00 BP 173 / 124; Pulse 118; Resp 22; Pulse Ox 100% ; la4 23:15 BP 197 / 144; Pulse 114; Resp 22; Pulse Ox 100% ; la4 23:30 BP 187 / 140; Pulse 119; Resp 22; Pulse Ox 100% on R/A; la4 1205 02:02 BP 153 / 107; Pulse 110; Resp 20; Temp 98.1; Pulse Ox 100% on R/A; la4 02:10 BP 156 / 121 RA; Pulse 109 MON; Resp 16 A; Pulse Ox 100% on ETT vent; FiO2 100 %; la4 02:15 BP 211 / 158; Pulse 136; Resp 20; Pulse Ox 100% on ETT vent; FiO2 100 %; la4 02:28 Weight 65 kg; Height 5 ft. 0 in. ; la4 02:30 BP 181 / 138; Pulse 106; Resp 16; Pulse Ox 100% on ETT vent; FiO2 100 %; la4 02:42 BP 168 / 133; Pulse 105; Resp 16; Pulse Ox 100% ; FiO2 100 %; la4 02:45 BP 211 / 161; Pulse 130; Resp 16; Pulse Ox 100% on ETT vent; FiO2 100 %; la4 03:00 BP 205 / 148; Pulse 100; Resp 16; Pulse Ox 100% on ETT vent; FiO2 100 %; la4 03:10 BP 171 / 126; Pulse 98; Resp 16; Pulse Ox 100% ; FiO2 100 %; la4 03:15 BP 222 / 144; Pulse 128; Resp 16; Pulse Ox 100% on ETT vent; FiO2 100 %; la4 03:25 BP 152 / 117; Pulse 101; Resp 14; Pulse Ox 100% ; FiO2 100 %; la4 03:30 BP 148 / 118; Pulse 97; Resp 14; Pulse Ox 100% ; FiO2 100 %; la4 03:45 BP 137 / 113; Pulse 98; Resp 14; Pulse Ox 100% ; FiO2 100 %; la4 04:00 BP 139 / 113; Pulse 97; Resp 14; Pulse Ox 100% on ETT vent; FiO2 100 %; la4 04:20 BP 132 / 106; Pulse 95; Resp 14; Pulse Ox 100% on ETT vent; FiO2 100 %; Pain 0/10; la4 04:40 BP 135 / 108; Pulse 92; Resp 14; Pulse Ox 100% on ETT vent; FiO2 100 %; la4 05:00 BP 163 / 124; Pulse 101; Resp 14; Pulse Ox 100% on ETT vent; FiO2 100 %; la4 05:20 BP 199 / 156; Pulse 110; Resp 16; Pulse Ox 100% ; FiO2 100 %; la4 05:40 BP 164 / 126; Pulse 95; Resp 16; Pulse Ox 100% on ETT vent; FiO2 100 %; la4 06:00 BP 167 / 132; Pulse 94; Resp 14; Pulse Ox 100% on ETT vent; FiO2 100 %; la4 06:00 BP 167 / 132; Pulse 94; Resp 14; Pulse Ox 100% on ETT vent; FiO2 100 %; la4 02:28 Body Mass Index 27.99 (65.00 kg, 152.4 cm) la4 04:20 Pain Scale: Adult la4 03/15 22:28 PT IS RESTLESS AND UNCOOPERATIVE la4 03/16 04:20 intubated and sedated. no distress or discomfort noted la4 Amanda Coma Score: 03/15 23:55 Eye Response: spontaneous(4). Motor Response: obeys commands(6). Verbal Response: la4 confused(4). Total: 14. 03/16 01:01 Eye Response: to voice(3). Motor Response: localizes pain(5). Verbal Response: la4 confused(4). Total: 12. 02:15 Eye Response: none(1). Motor Response: none(1). Verbal Response: none(1). Total: 3. la4 03:45 Eye Response: none(1). Modifying Factors: Intubated. Motor Response: none(1). Verbal la4 Response: none(1). Total: 3. 04:00 Eye Response: none(1). Modifying Factors: Intubated. Motor Response: none(1). Verbal la4 Response: none(1). Total: 3. Procedures: 02:27 Intubation: Ventilated with 100% NRB prior to procedure. Intubated orally using # 3 sp4 Venancio blade with 7.5 mm ETT. was successful on first attempt. Ventilated with Ambu bag. ventilator. Tube secured with ETT valderrama at center of mouth measured 23 cm at lip. Placement verified by CXR, CO2 detector with (+) color change, auscultating bilateral breath sounds, O2 saturation after procedure was 100 %. [place] scope assisted intubation . Patient tolerated well, Patient was intubated for airway protection. MDM: 03/15 22:33 Patient medically screened. sp4 03/16 01:29 Data reviewed: vital signs, nurses notes, EMS record, lab test result(s), EKG, sp4 radiologic studies, CT scan. 02:26 Differential Diagnosis altered mental status, sepsis, flu. Consideration of sp4 Admission/Observation Patient was admitted/placed on observation. Escalation of care including admission/observation considered. ED course: Despite multiple doses of medications, Ativan 4 mg IV total, Versed 4 mg IV and Geodon 20 mg intramuscular patient developed moderate to persistent agitation required restraints, and had to be intubated for complete sedation and airway protection. This time we will pursue CT head and C-spine, and will also pursue ICU admit . . 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 Lungs are clear without consolidation, atelectasis, mass or edema. There is no pleural effusion. There is no pneumothorax. There are no acute osseous findings. Endotracheal tube tip is in the lower third of the trachea. NG tube tip is in. IMPRESSION: Life-support equipment in place. . 03:28 ED course: CT - FINDINGS: Brain: There is no acute hemorrhage, mass effect or midline sp4 shift. Ma-white differentiation is preserved. There is no hydrocephalus. There is no significant volume loss for age. The calvarium is intact. Orbits and globes are unremarkable. The paranasal sinuses are clear. Mastoid air cells are clear. Cervical Spine: There is no acute fracture. Alignment is anatomic. Disc spaces are maintained. Vertebral body heights are preserved. Soft tissues are unremarkable. IMPRESSION: No acute posttraumatic findings. . 03:30 ED course: CT head - FINDINGS: Brain: There is no acute hemorrhage, mass effect or sp4 midline shift. Ma-white differentiation is preserved. There is no hydrocephalus. There is no significant volume loss for age. The calvarium is intact. Orbits and globes are unremarkable. The paranasal sinuses are clear. Mastoid air cells are clear. Cervical Spine: There is no acute fracture. Alignment is anatomic. Disc spaces are maintained. Vertebral body heights are preserved. Soft tissues are unremarkable. IMPRESSION: No acute postraumatic findings. . 05:18 ED course: Patient was accepted to [facility] ICU at 5:19 AM. sp4 03/15 22:32 Order name: Acetaminophen; Complete Time: 02:23 sp4 03/15 22:32 Order name: Basic Metabolic Panel; Complete Time: 02:23 sp4 12 22:32 Order name: CBC with Diff; Complete Time: 23:46 sp4 03/15 22:32 Order name: ETOH Level; Complete Time: 23:46 sp4 03/15 22:32 Order name: Hepatic Function; Complete Time: 02:23 sp4 03/15 22:32 Order name: PT-INR; Complete Time: 23:46 sp4 03/15 22:32 Order name: Test, Urine; Complete Time: 01:16 sp4 03/15 22:32 Order name: Ptt, Activated; Complete Time: 23:46 sp4 03/15 22:32 Order name: Salicylate; Complete Time: 23:46 sp4 03/15 22:32 Order name: Urine Drug Screen; Complete Time: 01:16 sp4 03/15 22:32 Order name: Test, Serum; Complete Time: 23:46 sp4 03/15 23:24 Order name: Glucose, Ancillary Testing; Complete Time: 23:46 EDMS 1205 01:36 Order name: T4 Free; Complete Time: 02:23 EDMS 03/16 01:36 Order name: Thyroid Stimulating Hormone; Complete Time: 02:23 EDMS 05 02:02 Order name: COVID-19/FLU A+B; Complete Time: 05:14 sp4 03/16 01:56 Order name: CT Head C Spine 4 03/16 02:46 Order name: Chest Single View XRAY sp4 03/15 22:32 Order name: IV Saline Lock; Complete Time: 22:49 sp4 03/15 22:32 Order name: Labs collected and sent; Complete Time: 22:49 4 03/15 22:32 Order name: Suicide Screening ([place]); Complete Time: 22:49 4 03/15 23:47 Order name: Agarwal; Complete Time: 00:26 sp4 03/16 01:53 Order name: Intubation Setup; Complete Time: 02:27 sp4 EC/04 23:18 Rate is 127 beats/min. Rhythm is regular, Sinus tachycardia. QRS [place] is Normal. OR sp4 interval is normal. QRS interval is normal. QT interval is normal. No Q waves. T waves are Normal. No ST changes noted. Clinical impression: No evidence of ischemia. Interpreted by me. Reviewed by me. Administered Medications: 22:34 Drug: Ativan IVP 2 mg IVP once Route: IVP; Site: right antecubital; bp 23:11 Follow up: Response: No adverse reaction; Anxiety unchanged la4 03/16 01:24 Follow up: Response: No adverse reaction; RASS: Restless (+1) la4 03/15 23:10 Drug: NS 0.9% IV 1000 ml IV at 1 bolus Per protocol; 1000 mL bolus Route: IV; Rate: 1 la4 bolus; Site: right antecubital; 03/16 00:00 Follow up: IV Status: Completed infusion; IV Intake: 1000ml la4 03/15 23:10 Drug: Ondansetron IVP 4 mg IVP once; over 2 minutes Route: IVP; Site: right antecubital;la4 23:11 Follow up: Response: No adverse reaction; No change in condition la4 03/16 01:23 Follow up: Response: No adverse reaction la4 03/15 23:10 Drug: D5-NS IV 1000 ml IV at 125 ml/hr continuous Route: IV; Rate: 125 ml/hr; Site: la4 right antecubital; 23:11 Drug: Ativan IVP 2 mg IVP once Route: IVP; Site: right antecubital; la4 03/16 01:23 Follow up: Response: RASS: Restless (+1) la4 03/15 23:50 Drug: Geodon IM 20 mg IM once Route: IM; Site: right deltoid; la4 03/16 01:23 Follow up: Response: Anxiety decreased; RASS: Restless (+1) la4 00:30 Drug: Thiamine IV 100 mg IV at bolus once Route: IV; Rate: bolus; Site: right la4 antecubital; 01:22 Follow up: Response: No adverse reaction la4 01:10 Drug: NS 0.9% IV 1000 ml IV at 1 bolus Per protocol; 1000 mL bolus Route: IV; Rate: 1 la4 bolus; Infused Over: 30 mins; Site: right antecubital; 04:09 Follow up: Response: No adverse reaction; IV Status: Completed infusion; IV Intake: la4 1000ml 01:25 Drug: Midazolam IVP or IV 4 mg IVP once Route: IVP; Site: right antecubital; la4 02:36 Follow up: Response: No adverse reaction la4 04:08 Follow up: Response: Patient is sedated; RASS: Unarousable (-5) la4 02:19 Drug: Etomidate IVP 20 mg IVP once Route: IVP; Site: left forearm; as6 04:07 Follow up: Response: Patient is sedated; RASS: Unarousable (-5) la4 04:08 Follow up: Response: Patient is sedated; RASS: Unarousable (-5) la4 04:30 Follow up: Response: No adverse reaction la4 02:20 Drug: Rocuronium IVP 100 mg IVP once Route: IVP; Site: right forearm; as6 02:20 Drug: mechanical Ventilation 1 ea Endotracheal continuous Route: Endotracheal; la4 02:24 Not Given (Duplicate Order): [id number] mg IVP once sp4 02:25 Drug: Midazolam IVP or IV 0.01 mg/kg/h IV at calculated rate See Administration la4 Instructions; (Standard concentration: 100 mg / 100 mL NS); Recommended max rate 0.1 mg/kg/hr; Titrate 0.01 mg/kg/hr as often as every 30 minutes to achieve goal (see titration policy); Goal parameter RASS 0 to -2 {Note: intubated pt.} Route: IV; Rate: 6.5 calculated rate; Site: right antecubital; Delivery: Primary tubing; 02:34 Drug: Midazolam IVP or IV 0.01 mg/kg/h IV at calculated rate See Administration la4 Instructions; (Standard concentration: 100 mg / 100 mL NS); Recommended max rate 0.1 mg/kg/hr; Titrate 0.01 mg/kg/hr as often as every 30 minutes to achieve goal (see titration policy); Goal parameter RASS 0 to -2 {Note: titrate for sedation of intubated patient.} Route: IV; Rate: 6.5 mg/hr; Site: right antecubital; Delivery: Primary tubing; 04:08 Follow up: Response: Patient is sedated; RASS: Unarousable (-5) la4 03:20 Drug: fentaNYL (PF) IV 25 mcg/kg/h IV at calculated rate See Administration la4 Instructions; (Standard concentration 500 mcg / 50 mL NS [10 mcg / 1 mL); Recommended max rate 4 mcg/kg/hr; Titrate 0.25 mcg/kg/hr as often as every 3 minutes to achieve goal (see titration policy); Goal parameter RASS score 0 to -2 Route: IV; Rate: 6.5 ml/hr; Site: left forearm; Delivery: Primary tubing; 04:08 Follow up: Response: No adverse reaction; Patient is sedated; RASS: Unarousable (-5) la4 03:21 Drug: Potassium Chloride IV 20 mEq IV at calculated rate once; administer over 1-2 la4 hours Route: IV; Rate: calculated rate; Infused Over: 2 hrs; Site: right antecubital; Delivery: Primary tubing; 04:07 Follow up: Response: No adverse reaction la4 05:50 Follow up: Response: No adverse reaction; IV Status: Completed infusion; IV Intake: la4 100ml 03:29 Drug: fentaNYL (PF) IVP 100 mcg IVP once Route: IVP; Site: left forearm; la4 04:07 Follow up: Response: No adverse reaction; Patient is sedated; RASS: Unarousable (-5) la4 Point of Care Testing: Blood Glucose: 03/15 22:50 Blood Glucose: 124 mg/dL; la4 Ranges: Critical Glucose Levels:Adult <50 mg/dl or >400 mg/dl <40 mg/dl or >180 mg/dl Disposition Summary: 03/16/23 02:29 Transfer Ordered Notes: Transfer Location: [facility] sp4 Reason: Higher level of care sp4 Condition: Serious sp4 Problem: new sp4 Symptoms: have improved sp4 Accepting Physician: [facility] accepting physician(03/16/23 07:20) ph Diagnosis - Restlessness and agitation sp4 - Accidental overdose, cannabis abuse, alcohol intoxication, agitation requiring sp4 sedation protocol, altered mental status, synthetic cannabis overdose - Alcoholic hepatitis sp4 Forms: - Medication Reconciliation Form sp4 - SBAR form sp4 Critical care time excluding procedures: 03/16 02:29 Critical care time: Bedside Care: 36 minutes, Consultation: 12 minutes, Family sp4 Intervention: 16 minutes. Total time: 64 minutes Signatures: Dispatcher [employer] Silvina Velasquez RN RN ph Peltier, Brian, RN RN bp Slawson, Ashby, RN RN as6 Leroy Alvarez MD MD sp4 Andrews, La'Rea, RN RN la4 Corrections: (The following items were deleted from the chart) 01:35 01:30 THYROID STIMULAT HORMONE+C.LAB.BRZ ordered. EDMS EDMS 01:35 01:30 T4 FREE+C.LAB.BRZ ordered. EDMS EDMS 02:31 02:29 [facility] accepting physician sp4 sp4 07:20 02:31 [facility] accepting physician sp4 ph
--- NOTE | 2023-03-16 02:30 | ER ---
Nurse's Notes [facility] Name: Shirley Navarro Age: 32 yrs Sex: Female : 1990 Arrival Date: 03/15/2023 Time: 22:28 Bed 2 Private MD: Diagnosis: Restlessness and agitation;Accidental overdose, cannabis abuse, alcohol intoxication, agitation requiring sedation protocol, altered mental status, synthetic cannabis overdose;Alcoholic hepatitis Presentation: 03/15 22:28 Chief complaint: EMS states: Pt found at home by SO and altered. Reports pt uses la4 synthetic Marijuana. Pt initial presentation w/ EMS altered w/ elevated HR in 150's. Pt noted to swing and bite at EMS. Coronavirus screen: Client denies travel out of the [place] in the last 14 days. Ebola Screen: No symptoms or risks identified at this time. Initial Sepsis Screen: Does the patient meet any 2 criteria? RR > 20 per min. HR > 90 bpm. Yes Does the patient have a suspected source of infection? No. Patient's initial sepsis screen is negative. Risk Assessment: Do you want to hurt yourself or someone else? Patient reports no desire to harm self or others. Onset of symptoms was March 15, 2023. Care prior to arrival: Medication(s) given: Normal saline infusion, 200ML IV initiated. 20 GA, in the right antecubital area. Activity prior to arrival: combative, confused. 22:28 Method Of Arrival: EMS: [facility] la4 22:28 Acuity: GAY 2 la4 Triage Assessment: 22:28 General: Appears distressed, Behavior is combative, restless, uncooperative, Pt la4 attempted to hit and bite EMS when being moved from the stretcher. Pt attempted to hit nursing staff while attempting to help move patient as well. Bilateral wrist restraints initiated. Smells of ketones. Pain: Unable to use pain scale. Patient is disoriented. Patient appears agitated, confused. Neuro: Bowles Agitation-Sedation Scale (RASS): +4 Combative Level of Consciousness is awake, alert, confused, Oriented to person, Guest Services Officer are equal bilaterally Moves all extremities. Speech is normal, Facial symmetry appears normal, Pupils are PERRLA, Pupil Size: 4 Intact. Cardiovascular: No deficits noted. Heart tones S1 S2 Capillary refill < 3 seconds is brisk fingers Pulses are all present. Edema is absent. Rhythm is sinus tachycardia. Respiratory: No deficits noted. Breath sounds are clear. GI: No deficits noted. Abdomen is Bowel sounds present X 4 quads. Derm: No deficits noted. No signs and/or symptoms reported regarding the dermatologic system. Skin is intact, is healthy with good turgor, Skin is dry, Skin is pink, warm \T\ dry. normal, Skin temperature is warm. Musculoskeletal: No deficits noted. No signs and/or symptoms reported regarding the musculoskeletal system. 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 - Social history:: Smoking status: Patient denies any tobacco usage or history of. - Family history:: not pertinent. - Code Status:: Full code. Screenin:55 [facility] ED Fall Risk Assessment (Adult) History of falling in the last 3 months, la4 including since admission No falls in past 3 months (0 pts) Confusion or Disorientation Yes (5 pts) Intoxicated or Sedated Yes (3 pts) Impaired Gait Yes (1 pt) Mobility Assist Device Used No (0 pt) Altered Elimination No (0 pt) Score/Fall Risk Level 0 - 2 = Low Risk Oriented to surroundings, Maintained a safe environment, Educated pt \T\ family on fall prevention, incl call for assistance when getting out of bed, Provided non-skid footwear. Abuse screen: Denies threats or abuse. Denies injuries from another. Nutritional screening: No deficits noted. Tuberculosis screening: No symptoms or risk factors identified. Assessment: 23:55 Reassessment: No changes from previously documented assessment. Pt remains confused and la4 combative requiring bilateral wrist restraints. SO and mother now at bedside. Additional medication given for agitation after Dr reevaluation of pt. Will continue to monitor. IVF continue to infuse. General: Appears distressed, Behavior is restless, uncooperative, Smells of ketones. Neuro: Level of Consciousness is confused. Cardiovascular: Capillary refill < 3 seconds is brisk Patient's skin is warm and dry. Rhythm is sinus tachycardia. Respiratory: Airway is patent Respiratory effort is even, unlabored, Respiratory pattern is regular, symmetrical. 03/16 02:30 Respiratory: Ventilator assessment: ET Tube: 7.5 at lip. Ventilator Mode: Assist la4 Control (AC) Tidal Volume: 400 Respiratory Rate: 14 FiO2: 100%. PEEP: 5 HOB > 30 degrees. Breath sounds are clear bilaterally. in mediastinum, right upper lobe, left upper lobe, right middle lobe, left lower lobe, right lower lobe, left posterior upper lobe, right posterior upper lobe, left posterior lower lobe, right posterior middle lobe and right posterior lower lobe. 02:30 Cardiovascular: Heart tones S1 S2 Patient's skin is warm and dry. Rhythm is sinus la4 tachycardia. : Horan in place to gravity drainage. Vital Signs: 03/15 22:28 BP 179 / 141; Pulse 129; Resp 20; Temp 99(TE); Pulse Ox 100% on R/A; la4 22:39 BP 179 / 141; Pulse 126; Resp 20; Pulse Ox 100% ; la4 22:45 BP 169 / 125; Pulse 20; Resp 20; Pulse Ox 100% on R/A; la4 23:00 BP 173 / 124; Pulse 118; Resp 22; Pulse Ox 100% ; la4 23:15 BP 197 / 144; Pulse 114; Resp 22; Pulse Ox 100% ; la4 23:30 BP 187 / 140; Pulse 119; Resp 22; Pulse Ox 100% on R/A; la4 03/16 02:02 BP 153 / 107; Pulse 110; Resp 20; Temp 98.1; Pulse Ox 100% on R/A; la4 02:10 BP 156 / 121 RA; Pulse 109 MON; Resp 16 A; Pulse Ox 100% on ETT vent; FiO2 100 %; la4 02:15 BP 211 / 158; Pulse 136; Resp 20; Pulse Ox 100% on ETT vent; FiO2 100 %; la4 02:28 Weight 65 kg; Height 5 ft. 0 in. ; la4 02:30 BP 181 / 138; Pulse 106; Resp 16; Pulse Ox 100% on ETT vent; FiO2 100 %; la4 02:42 BP 168 / 133; Pulse 105; Resp 16; Pulse Ox 100% ; FiO2 100 %; la4 02:45 BP 211 / 161; Pulse 130; Resp 16; Pulse Ox 100% on ETT vent; FiO2 100 %; la4 03:00 BP 205 / 148; Pulse 100; Resp 16; Pulse Ox 100% on ETT vent; FiO2 100 %; la4 03:10 BP 171 / 126; Pulse 98; Resp 16; Pulse Ox 100% ; FiO2 100 %; la4 03:15 BP 222 / 144; Pulse 128; Resp 16; Pulse Ox 100% on ETT vent; FiO2 100 %; la4 03:25 BP 152 / 117; Pulse 101; Resp 14; Pulse Ox 100% ; FiO2 100 %; la4 03:30 BP 148 / 118; Pulse 97; Resp 14; Pulse Ox 100% ; FiO2 100 %; la4 03:45 BP 137 / 113; Pulse 98; Resp 14; Pulse Ox 100% ; FiO2 100 %; la4 04:00 BP 139 / 113; Pulse 97; Resp 14; Pulse Ox 100% on ETT vent; FiO2 100 %; la4 04:20 BP 132 / 106; Pulse 95; Resp 14; Pulse Ox 100% on ETT vent; FiO2 100 %; Pain 0/10; la4 04:40 BP 135 / 108; Pulse 92; Resp 14; Pulse Ox 100% on ETT vent; FiO2 100 %; la4 05:00 BP 163 / 124; Pulse 101; Resp 14; Pulse Ox 100% on ETT vent; FiO2 100 %; la4 05:20 BP 199 / 156; Pulse 110; Resp 16; Pulse Ox 100% ; FiO2 100 %; la4 05:40 BP 164 / 126; Pulse 95; Resp 16; Pulse Ox 100% on ETT vent; FiO2 100 %; la4 06:00 BP 167 / 132; Pulse 94; Resp 14; Pulse Ox 100% on ETT vent; FiO2 100 %; la4 06:00 BP 167 / 132; Pulse 94; Resp 14; Pulse Ox 100% on ETT vent; FiO2 100 %; la4 02:28 Body Mass Index 27.99 (65.00 kg, 152.4 cm) la4 04:20 Pain Scale: Adult la4 03/15 22:28 PT IS RESTLESS AND UNCOOPERATIVE la4 03/16 04:20 intubated and sedated. no distress or discomfort noted la4 Vitals: 01:01 Cardiac Rhythm Assessment Sinus tach. la4 04:00 Cardiac Rhythm Assessment Regular Sinus rhythm. la4 06:00 Cardiac Rhythm Assessment Regular Sinus rhythm. la4 Amanda Coma Score: 03/15 23:55 Eye Response: spontaneous(4). Motor Response: obeys commands(6). Verbal Response: la4 confused(4). Total: 14. 03/16 01:01 Eye Response: to voice(3). Motor Response: localizes pain(5). Verbal Response: la4 confused(4). Total: 12. 02:15 Eye Response: none(1). Motor Response: none(1). Verbal Response: none(1). Total: 3. la4 03:45 Eye Response: none(1). Modifying Factors: Intubated. Motor Response: none(1). Verbal la4 Response: none(1). Total: 3. 04:00 Eye Response: none(1). Modifying Factors: Intubated. Motor Response: none(1). Verbal la4 Response: none(1). Total: 3. ED Course: 03/15 22:30 Patient arrived in ED. rv1 22:32 Leroy Alvarez MD is Attending Physician. sp4 22:34 Jonathon Almeida, TALITA is Primary Nurse. bp 22:50 Arm band placed on right wrist. Patient placed in an exam room, on a stretcher, on la4 gambling monitor, on pulse oximetry. EKG completed in triage. Results shown to MD. SO at bedside. 23:35 Triage completed. la4 23:55 Patient has correct armband on for positive identification. Placed in gown. Bed in low la4 position. Call light in reach. Side rails up X2. Provided Education on: notified of plan of care. 23:55 No provider procedures requiring assistance completed. Maintain EMS IV. Dressing la4 intact. Good blood return noted. Site clean \T\ dry. Gauge \T\ site: 20 gauge PIV. IV with fluids infusing freely, with good blood return, Flushed right antecubital peripheral line. 03/16 00:26 Horan cath inserted, using sterile technique, 16 Fr., by tx, balloon inflated, to la4 gravity drainage, urine specimen collected. Inserted saline lock: 20 gauge in right forearm, using aseptic technique. 00:58 Appears agitated. Appears restless. Safety Checks: A family member and/or friend is la4 present and encouraged to stay. 00:58 Client placed on continuous cardiac and pulse oximetry monitoring. NIBP monitoring la4 applied. 00:58 Inserted saline lock: 18 gauge in left forearm, using aseptic technique. IV la4 discontinued, 20G PIV stared to the right forearm discontinued due to pt thrashing about in bed and dislodging the IV. 02:15 transfer approval from receiving facility. la4 02:15 Client placed on continuous cardiac and pulse oximetry monitoring. NIBP monitoring la4 applied. 02:21 Assisted provider with intubation using 7.5 mm ETT via oral route. ET tube secured at as6 23cm at the teeth. Set up intubation tray. Intubated by Leroy Alvarez MD Placement verified by CO2 detector w/ + color change, auscultating bilateral breath sounds, Patient tolerated well. 02:23 NGT: inserted 16 Fr. other oral verified placement of air over stomach, verified return as6 of gastric contents, Patient tolerated well. 02:30 One-on-one care X 480 minutes. la4 02:57 Chest Single View XRAY In Process Unspecified. EDMS 03:[address] [facility] for transfer, no answer. Will call back. rv1 03:[address] [facility] for transfer, no answer. Will call back. rv1 03:[address] [facility] for transfer, no answer. Will call back. rv1 03:15 CT Head C Spine In Process Unspecified. EDMS 03:22 X-ray(s) taken. CT scan of head completed pt back in room on ventilator. Dr. Denton in la4 to evaluate pt. HR remains elevated as well as BP. Fentanyl bolus ordered. Inserted saline lock: 18 gauge in right forearm, using aseptic technique. Assist ventilation with ventilator. 03:[address] [facility] for transfer, no answer. Will call back. rv1 03:[address] [facility] for transfer, No answer. Provider notified, will attempt rv1 with different facility. 03:40 Initiated with Johanna at [facility]. rv1 04:17 [facility] declined due to ICU capacity. rv1 04:20 Initiated transfer with Blossom at [facility]. rv1 05:[address] Montelongo to [facility] ICU 204. rv1 Restraints: 03/15 23:30 Violent/Self Destructive Restraint: Order: obtained. Initiated March 15, 2023 at in4 23:30 Staff present during the Initiation of Restraint: Dr. Leroy Alvarez, Jonathon ER Charge, myself, and EMS staff transporting pt to facility. Family Notification/Education: Observed actions/behavior: destructive, violent, confusion/disorientation, impaired decision making, repeated attempts to get up from bed/chair without assistance. unable to follow instructions, rptd attempts to remove/tamper lines/tubes/IV/med devices \T\ wnd dressing, pt attempted to bite and hit EMS and nursing staff and pulling at invasive lines. Less restrictive alternatives attempted: decreased environmental stimuli, family at bedside, repositioned, covered lines/tubes, Alternative interventions: Ineffective. Clinical justification for use: Violent/self destructing behavior impacts therapeutic environment. Poses a serious danger to physical safety of self \T\ others. Monitoring: Mental status: agitated/restless, confused. Cognition: Circulation: Within defined parameters (based on Cardiovascular assessment). Skin integrity: Within defined parameters (based on Integumentary assessment) No injuries due to Restraints noted. Range of Motion: Hydration/Food: Elimination/Hygiene: Restraint status: Side rails up x 4 Started. Soft wrist restraint (Right) Started. Soft wrist restraint (Left) Started. 23:45 Violent/Self Destructive Restraint: Order: Observed actions/behavior: la4 confusion/disorientation, impaired decision making, repeated attempts to get up from bed/chair without assistance. unable to follow instructions, rptd attempts to remove/tamper lines/tubes/IV/med devices \T\ wnd dressing, intermittently thrashing about bed. Less restrictive alternatives attempted: family at bedside, repositioned, Alternative interventions: Ineffective. Clinical justification for use: Violent/self destructing behavior impacts therapeutic environment. Poses a serious danger to physical safety of self \T\ others. Monitoring: Mental status: agitated/restless, confused. Cognition: unable to follow commands, Circulation: Within defined parameters (based on Cardiovascular assessment). Skin integrity: Within defined parameters (based on Integumentary assessment) No injuries due to Restraints noted. Restraint status: Side rails up x 4 Continued. Soft wrist restraint (Right) Continued. Soft wrist restraint (Left) Continued. 03/16 00:00 Violent/Self Destructive Restraint: Family Notification/Education: Education provided la4 to family/significant other/legally authorized life assurance representative. Observed actions/behavior: confusion/disorientation, repeated attempts to get up from bed/chair without assistance. unable to follow instructions, rptd attempts to remove/tamper lines/tubes/IV/med devices \T\ wnd dressing, Less restrictive alternatives attempted: decreased environmental stimuli, family at bedside, repositioned, covered lines/tubes, Alternative interventions: Ineffective. Clinical justification for use: Violent/self destructing behavior impacts therapeutic environment. Poses a serious danger to physical safety of self \T\ others. Monitoring: Mental status: agitated/restless, confused. Cognition: unable to follow commands, Circulation: Within defined parameters (based on Cardiovascular assessment). Skin integrity: Within defined parameters (based on Integumentary assessment) No injuries due to Restraints noted. Restraint status: Side rails up x 4 Continued. Soft wrist restraint (Right) Continued. Soft wrist restraint (Left) Continued. 00:15 Violent/Self Destructive Restraint: Observed actions/behavior: la4 confusion/disorientation, unable to follow instructions, rptd attempts to remove/tamper lines/tubes/IV/med devices \T\ wnd dressing, Less restrictive alternatives attempted: decreased environmental stimuli, family at bedside, repositioned, Alternative interventions: Ineffective. Clinical justification for use: Violent/self destructing behavior impacts therapeutic environment. Poses a serious danger to physical safety of self \T\ others. Monitoring: Mental status: agitated/restless, confused. patient asleep, Cognition: unable to follow commands, Circulation: Within defined parameters (based on Cardiovascular assessment). Skin integrity: Within defined parameters (based on Integumentary assessment) No injuries due to Restraints noted. Restraint status: Side rails up x 4 Continued. Soft wrist restraint (Right) Continued. Soft wrist restraint (Left) Continued. 00:30 Violent/Self Destructive Restraint: Observed actions/behavior: la4 confusion/disorientation, repeated attempts to get up from bed/chair without assistance. unable to follow instructions, rptd attempts to remove/tamper lines/tubes/IV/med devices \T\ wnd dressing, Pt is kicking and thrashing about bed intermittently where her legs are between the rails of the bed. Pt horan catheter remains intact and secured to the right thigh. Pt remains sensitive to touch stimuli while sleep. Unable to remove bilateral wrist restraints at this time. Dr Leroy Alvarez to bedside and additional emergency medication ordered. Will continue restraints and continue to monitor. Less restrictive alternatives attempted: decreased environmental stimuli, family at bedside, repositioned, covered lines/tubes, Alternative interventions: Ineffective. Clinical justification for use: Violent/self destructing behavior impacts therapeutic environment. Poses a serious danger to physical safety of self \T\ others. Monitoring: Mental status: agitated/restless, confused. patient asleep, Cognition: unable to follow commands, Circulation: Within defined parameters (based on Cardiovascular assessment). Skin integrity: Within defined parameters (based on Integumentary assessment) No injuries due to Restraints noted. Range of Motion: Performed. Hydration/Food: patient asleep. Elimination/Hygiene: patient asleep. Restraint status: Side rails up x 4 Continued. Soft wrist restraint (Right) Continued. Soft wrist restraint (Left) Continued. Soft ankle restraint (Right) Started. Soft ankle restraint (Left) Started. Face to Face Evaluatn: Immediate Situation: Pt continues to thrash about the bed intermittently although eyes are closed. Fighting restraints, Hr elevated as well as BP Response of Patient to Restraint: Fighting restraints Medical \T\ Behavioral condition: pt requires additional interventions Continue Restraint. MD Notified of Evaluation result: Leroy Alvarez MD. 00:45 Violent/Self Destructive Restraint: Family Notification/Education: Education provided la4 to family/significant other/legally authorized life assurance representative. Observed actions/behavior: confusion/disorientation, unable to follow instructions, rptd attempts to remove/tamper lines/tubes/IV/med devices \T\ wnd dressing, Less restrictive alternatives attempted: decreased environmental stimuli, family at bedside, repositioned, Alternative interventions: Ineffective. Clinical justification for use: Violent/self destructing behavior impacts therapeutic environment. Poses a serious danger to physical safety of self \T\ others. Monitoring: Mental status: agitated/restless, confused. patient asleep, Cognition: unable to follow commands, Circulation: Within defined parameters (based on Cardiovascular assessment). Skin integrity: Within defined parameters (based on Integumentary assessment) No injuries due to Restraints noted. Restraint status: Side rails up x 4 Continued. Soft wrist restraint (Right) Continued. Soft wrist restraint (Left) Continued. Soft ankle restraint (Right) Continued. Soft ankle restraint (Left) Continued. 01:00 Violent/Self Destructive Restraint: Observed actions/behavior: la4 confusion/disorientation, impaired decision making, unable to follow instructions, rptd attempts to remove/tamper lines/tubes/IV/med devices \T\ wnd dressing, Less restrictive alternatives attempted: decreased environmental stimuli, family at bedside, repositioned, Alternative interventions: Ineffective. Clinical justification for use: Violent/self destructing behavior impacts therapeutic environment. Poses a serious danger to physical safety of self \T\ others. Monitoring: Mental status: agitated/restless, confused. patient asleep, Cognition: unable to follow commands, Circulation: Within defined parameters (based on Cardiovascular assessment). Skin integrity: Within defined parameters (based on Integumentary assessment) No injuries due to Restraints noted. Restraint status: Side rails up x 4 Continued. Soft wrist restraint (Right) Continued. Soft wrist restraint (Left) Continued. Soft ankle restraint (Right) Continued. Soft ankle restraint (Left) Continued. 01:15 Violent/Self Destructive Restraint: Observed actions/behavior: la4 confusion/disorientation, repeated attempts to get up from bed/chair without assistance. unable to follow instructions, Less restrictive alternatives attempted: decreased environmental stimuli, family at bedside, repositioned, Alternative interventions: Ineffective. Clinical justification for use: Violent/self destructing behavior impacts therapeutic environment. Poses a serious danger to physical safety of self \T\ others. Monitoring: Mental status: agitated/restless, confused. patient asleep, Cognition: unable to follow commands, Circulation: Within defined parameters (based on Cardiovascular assessment). Skin integrity: Within defined parameters (based on Integumentary assessment) No injuries due to Restraints noted. Restraint status: Side rails up x 4 Continued. Soft wrist restraint (Right) Continued. Soft wrist restraint (Left) Continued. Soft ankle restraint (Right) Continued. Soft ankle restraint (Left) Continued. 01:45 Violent/Self Destructive Restraint: Order: Observed actions/behavior: la4 confusion/disorientation, unable to follow instructions, rptd attempts to remove/tamper lines/tubes/IV/med devices \T\ wnd dressing, Less restrictive alternatives attempted: decreased environmental stimuli, family at bedside, repositioned, Alternative interventions: Ineffective. Clinical justification for use: Violent/self destructing behavior impacts therapeutic environment. Poses a serious danger to physical safety of self \T\ others. Monitoring: Mental status: agitated/restless, confused. patient asleep, Cognition: unable to follow commands, Circulation: Within defined parameters (based on Cardiovascular assessment). Skin integrity: Within defined parameters (based on Integumentary assessment) No injuries due to Restraints noted. Restraint status: Side rails up x 4 Continued. Soft wrist restraint (Right) Continued. Soft wrist restraint (Left) Continued. Soft ankle restraint (Right) Continued. Soft ankle restraint (Left) Continued. 02:00 Violent/Self Destructive Restraint: Observed actions/behavior: la4 confusion/disorientation, impaired decision making, unable to follow instructions, Less restrictive alternatives attempted: decreased environmental stimuli, family at bedside, repositioned, Alternative interventions: Ineffective. Clinical justification for use: Violent/self destructing behavior impacts therapeutic environment. Poses a serious danger to physical safety of self \T\ others. Monitoring: Mental status: agitated/restless, confused. patient asleep, Cognition: unable to follow commands, Circulation: Within defined parameters (based on Cardiovascular assessment). Skin integrity: Within defined parameters (based on Integumentary assessment) No injuries due to Restraints noted. Restraint status: Side rails up x 4 Continued. Soft wrist restraint (Right) Continued. Soft wrist restraint (Left) Continued. Soft ankle restraint (Right) Continued. Soft ankle restraint (Left) Continued. 02:30 Violent/Self Destructive Restraint: Readiness for Discontinue: Release criteria met. No la4 longer exhibiting violent or self destructive behavior. Alt interventions effective. 02:30 Violent/Self Destructive Restraint: Family Notification/Education: Education provided la4 to family/significant other/legally authorized life assurance representative. Observed actions/behavior: confusion/disorientation, unable to follow instructions, rptd attempts to remove/tamper lines/tubes/IV/med devices \T\ wnd dressing, Less restrictive alternatives attempted: decreased environmental stimuli, family at bedside, repositioned, covered lines/tubes, Alternative interventions: Ineffective. Clinical justification for use: Violent/self destructing behavior impacts therapeutic environment. Poses a serious danger to physical safety of self \T\ others. Monitoring: Mental status: Restraint status: Side rails up x 4 Continued. Soft wrist restraint (Right) Continued. Soft wrist restraint (Left) Continued. Soft ankle restraint (Right) Continued. Soft ankle restraint (Left) Continued. Readiness for Discontinue: Release criteria met. No longer exhibiting violent or self destructive behavior. Alt interventions effective. Restraint discontinuation: Discontinued at March 16, 2023 at 02:35 Effective alternative interventions: family at bedside, Behavioral intubation and sedation. Administered Medications: 03/15 22:34 Drug: Ativan IVP 2 mg IVP once Route: IVP; Site: right antecubital; bp 23:11 Follow up: Response: No adverse reaction; Anxiety unchanged la4 03/16 01:24 Follow up: Response: No adverse reaction; RASS: Restless (+1) la4 03/15 23:10 Drug: NS 0.9% IV 1000 ml IV at 1 bolus Per protocol; 1000 mL bolus Route: IV; Rate: 1 la4 bolus; Site: right antecubital; 03/16 00:00 Follow up: IV Status: Completed infusion; IV Intake: 1000ml la4 03/15 23:10 Drug: Ondansetron IVP 4 mg IVP once; over 2 minutes Route: IVP; Site: right antecubital;la4 23:11 Follow up: Response: No adverse reaction; No change in condition la4 03/16 01:23 Follow up: Response: No adverse reaction la4 03/15 23:10 Drug: D5-NS IV 1000 ml IV at 125 ml/hr continuous Route: IV; Rate: 125 ml/hr; Site: la4 right antecubital; 23:11 Drug: Ativan IVP 2 mg IVP once Route: IVP; Site: right antecubital; la4 03/16 01:23 Follow up: Response: RASS: Restless (+1) la4 03/15 23:50 Drug: Geodon IM 20 mg IM once Route: IM; Site: right deltoid; la4 03/16 01:23 Follow up: Response: Anxiety decreased; RASS: Restless (+1) la4 00:30 Drug: Thiamine IV 100 mg IV at bolus once Route: IV; Rate: bolus; Site: right la4 antecubital; 01:22 Follow up: Response: No adverse reaction la4 01:10 Drug: NS 0.9% IV 1000 ml IV at 1 bolus Per protocol; 1000 mL bolus Route: IV; Rate: 1 la4 bolus; Infused Over: 30 mins; Site: right antecubital; 04:09 Follow up: Response: No adverse reaction; IV Status: Completed infusion; IV Intake: la4 1000ml 01:25 Drug: Midazolam IVP or IV 4 mg IVP once Route: IVP; Site: right antecubital; la4 02:36 Follow up: Response: No adverse reaction la4 04:08 Follow up: Response: Patient is sedated; RASS: Unarousable (-5) la4 02:19 Drug: Etomidate IVP 20 mg IVP once Route: IVP; Site: left forearm; as6 04:07 Follow up: Response: Patient is sedated; RASS: Unarousable (-5) la4 04:08 Follow up: Response: Patient is sedated; RASS: Unarousable (-5) la4 04:30 Follow up: Response: No adverse reaction la4 02:20 Drug: Rocuronium IVP 100 mg IVP once Route: IVP; Site: right forearm; as6 02:20 Drug: mechanical Ventilation 1 ea Endotracheal continuous Route: Endotracheal; la4 02:24 Not Given (Duplicate Order): [id number] mg IVP once sp4 02:25 Drug: Midazolam IVP or IV 0.01 mg/kg/h IV at calculated rate See Administration la4 Instructions; (Standard concentration: 100 mg / 100 mL NS); Recommended max rate 0.1 mg/kg/hr; Titrate 0.01 mg/kg/hr as often as every 30 minutes to achieve goal (see titration policy); Goal parameter RASS 0 to -2 {Note: intubated pt.} Route: IV; Rate: 6.5 calculated rate; Site: right antecubital; Delivery: Primary tubing; 02:34 Drug: Midazolam IVP or IV 0.01 mg/kg/h IV at calculated rate See Administration la4 Instructions; (Standard concentration: 100 mg / 100 mL NS); Recommended max rate 0.1 mg/kg/hr; Titrate 0.01 mg/kg/hr as often as every 30 minutes to achieve goal (see titration policy); Goal parameter RASS 0 to -2 {Note: titrate for sedation of intubated patient.} Route: IV; Rate: 6.5 mg/hr; Site: right antecubital; Delivery: Primary tubing; 04:08 Follow up: Response: Patient is sedated; RASS: Unarousable (-5) la4 03:20 Drug: fentaNYL (PF) IV 25 mcg/kg/h IV at calculated rate See Administration la4 Instructions; (Standard concentration 500 mcg / 50 mL NS [10 mcg / 1 mL); Recommended max rate 4 mcg/kg/hr; Titrate 0.25 mcg/kg/hr as often as every 3 minutes to achieve goal (see titration policy); Goal parameter RASS score 0 to -2 Route: IV; Rate: 6.5 ml/hr; Site: left forearm; Delivery: Primary tubing; 04:08 Follow up: Response: No adverse reaction; Patient is sedated; RASS: Unarousable (-5) la4 03:21 Drug: Potassium Chloride IV 20 mEq IV at calculated rate once; administer over 1-2 la4 hours Route: IV; Rate: calculated rate; Infused Over: 2 hrs; Site: right antecubital; Delivery: Primary tubing; 04:07 Follow up: Response: No adverse reaction la4 05:50 Follow up: Response: No adverse reaction; IV Status: Completed infusion; IV Intake: la4 100ml 03:29 Drug: fentaNYL (PF) IVP 100 mcg IVP once Route: IVP; Site: left forearm; la4 04:07 Follow up: Response: No adverse reaction; Patient is sedated; RASS: Unarousable (-5) la4 Medication: 03/15 23:55 VIS not applicable for this client. la4 Point of Care Testing: Blood Glucose: 22:50 Blood Glucose: 124 mg/dL; la4 Ranges: Intake: 1205 00:00 IV: 1000ml; Total: 1000ml. la4 04:09 IV: 1000ml; Total: 2000ml. la4 05:50 IV: 100ml; Total: 2100ml. la4 02:30 clear light yellow urine la4 Output: 00:20 Urine: 1500ml (Horan); Total: 1500ml. la4 02:30 Urine: 1300ml (Horan); Total: 2800ml. la4 02:30 clear light yellow urine la4 Outcome: 02:29 ER care complete, transfer ordered by . sp4 02:30 Condition: stable la4 02:30 Instructed on the need for transfer, discussed w/ patient mother 07:06 Transferred by ground EMS to [facility], Transfer form completed. la4 X-rays sent w/ patient. Note: [facility] . Mother given address and room number 07:06 Demonstrated understanding of instructions, need for transfer of care 07:20 Patient left the ED. ph Signatures: Dispatcher [employer] Silvina Velasquez RN Jonathon Cam ph, RN RN Tre Pittman, RN RN as6 Jessica De La Vega rv1 Leroy Alvarez MD MD sp4 Roverto Jesus, RN RN la4 Corrections: (The following items were deleted from the chart) 01:36 03/15 23:30 Violent/Self Destructive Restraint: Order: obtained. Initiated March 152022 at 23:30 Staff present during the Initiation of Restraint: Jonathon Nair ER Charge, myself, and EMS staff transporting pt to facility. Family Notification/Education: Observed actions/behavior: destructive, violent, impaired decision making, repeated attempts to get up from bed/chair without assistance. unable to follow instructions, rptd attempts to remove/tamper lines/tubes/IV/med devices \T\ wnd dressing, pt attempted to bite and hit EMS and nursing staff and pulling at invasive lines. Less restrictive alternatives attempted: decreased environmental stimuli, family at bedside, repositioned, covered lines/tubes, Alternative interventions: Ineffective. Clinical justification for use: Violent/self destructing behavior impacts therapeutic environment. Poses a serious danger to physical safety of self \T\ others. Monitoring: Mental status: agitated/restless, confused. Cognition: Circulation: Within defined parameters (based on Cardiovascular assessment). Skin integrity: Within defined parameters (based on Integumentary assessment) No injuries due to Restraints noted. Range of Motion: Hydration/Food: Elimination/Hygiene: Restraint status: Side rails up x 4 Started. Soft wrist restraint (Right) Started. Soft wrist restraint (Left) Started. 03/16 01:49 01:48 Violent/Self Destructive Restraint: Order: Observed actions/behavior: confusion/disorientation, unable to follow instructions, rptd attempts to remove/tamper lines/tubes/IV/med devices \T\ wnd dressing, Less restrictive alternatives attempted: decreased environmental stimuli, family at bedside, repositioned, Alternative interventions: Ineffective. Clinical justification for use: Violent/self destructing behavior impacts therapeutic environment. Poses a serious danger to physical safety of self \T\ others. Monitoring: Mental status: agitated/restless, confused. patient asleep, Cognition: unable to follow commands, Circulation: Within defined parameters (based on Cardiovascular assessment). Skin integrity: Within defined parameters (based on Integumentary assessment) No injuries due to Restraints noted. Restraint status: Side rails up x 4 Continued. Soft wrist restraint (Right) Continued. Soft wrist restraint (Left) Continued. Soft ankle restraint (Right) Continued. Soft ankle restraint (Left) Continued. la4 01:55 01:49 Violent/Self Destructive Restraint: Family Notification/Education: Education la4 provided to family/significant other/legally authorized life assurance representative. Observed actions/behavior: confusion/disorientation, unable to follow instructions, rptd attempts to remove/tamper lines/tubes/IV/med devices \T\ wnd dressing, Less restrictive alternatives attempted: decreased environmental stimuli, family at bedside, repositioned, Alternative interventions: Ineffective. Clinical justification for use: Violent/self destructing behavior impacts therapeutic environment. Poses a serious danger to physical safety of self \T\ others. Monitoring: Mental status: agitated/restless, confused. patient asleep, Cognition: unable to follow commands, Circulation: Within defined parameters (based on Cardiovascular assessment). Skin integrity: Within defined parameters (based on Integumentary assessment) No injuries due to Restraints noted. Restraint status: Side rails up x 4 Continued. Soft wrist restraint (Right) Continued. Soft wrist restraint (Left) Continued. Soft ankle restraint (Right) Continued. Soft ankle restraint (Left) Continued. la4 03:39 03:[address] [facility] for transfer, No answer. Provider notified, will rv1 attempt different facility. rv1 04:24 04:09 Violent/Self Destructive Restraint: Family Notification/Education: Education la4 provided to family/significant other/legally authorized life assurance representative. Observed actions/behavior: confusion/disorientation, unable to follow instructions, rptd attempts to remove/tamper lines/tubes/IV/med devices \T\ wnd dressing, Less restrictive alternatives attempted: decreased environmental stimuli, family at bedside, repositioned, covered lines/tubes, Alternative interventions: Ineffective. Clinical justification for use: Violent/self destructing behavior impacts therapeutic environment. Poses a serious danger to physical safety of self \T\ others. Monitoring: Mental status: Restraint status: Side rails up x 4 Continued. Soft wrist restraint (Right) Continued. Soft wrist restraint (Left) Continued. Soft ankle restraint (Right) Continued. Soft ankle restraint (Left) Continued. Readiness for Discontinue: Release criteria met. No longer exhibiting violent or self destructive behavior. Alt interventions effective. la4
[2023-03-16] MEDS ORDERED: MIDAZOLAM HCL IN 0.9 % NACL/PF 100 MG/100 ML BAG IVPB ONE (02:36)
[2023-03-16] MEDS ORDERED: KCL 20 MEQ/100 mL IVPB 100 ML IV ONE (03:07)
[2023-03-16] MEDS ORDERED: FENTANYL CITR 100 MCG/2 ML ONE ×2 (03:09→03:41)
[2023-03-16] MEDS ORDERED: NA CHLORIDE 0.9% 100 ML ONE (03:09)
[2023-03-16] MEDS ORDERED: RSI MEDICATION KIT IV ONE (03:55)
[2023-03-16 04:09] LABS: SARS-COV-2 RT PCR NEGATIVE (NEGATIVE)
[2023-03-16] MEDS ORDERED: D5 0.9 NS 1,000 ML IV ONE (07:07)
[2023-03-16 07:50] VITALS: O2SAT 100
[2023-03-16 07:57] VITALS: TEMP 98.1
[2023-03-16 08:19] VITALS: BP 167/132
--- NOTE | 2023-03-16 15:31 | RAD REPORT ---
EXAM DESCRIPTION: RAD - Chest Single View - 03/16/2023 2:55 am CLINICAL HISTORY: Intubation , tube status COMPARISON: None. TECHNIQUE: XR CHEST 1 VIEW 03/16/2023 2:46 AM WAREHOUSE GUARD FINDINGS: Cardiac silhouette is normal in size. Lungs are clear without consolidation, atelectasis, mass or edema. There is no pleural effusion. There is no pneumothorax. There are no acute osseous fin dings. Endotracheal tube tip is in the lower third of the trachea. NG tube tip is in. IMPRESSION: Life-support equipment in place. Electronically signed by: Arnol Nowak MD 03/16/2023 03:23 AM WAREHOUSE GUARD Due to temporary technical issues with the PACS/Fluency reporting system, reports are being signed by the in house radiologists without review as a courtesy to insure prompt reporting. The interpreting radiologist is fully responsible for the content of the report.
--- NOTE | 2023-03-16 15:37 | RAD REPORT ---
EXAM DESCRIPTION: CT - Head C Spine Mpr Wo Con - 03/16/2023 7:18 am CLINICAL HISTORY: DECLINING STATE COMPARISON: None. TECHNIQUE: CT HEAD AND CERVICAL SPINE WITHOUT CONTRAST on 03/16/2023 1:56 AM EXERCISE EQUIPMENT REPAIR TECHNICIAN This exam was performed according to our departmental dose-optimization program, which includes autom ated exposure control, adjustment of the mA and/or kV according to patient size and/or use of iterati ve reconstruction technique. FINDINGS: Brain: There is no acute hemorrhage, mass effect or midline shift. Ma-white differentiat ion is preserved. There is no hydrocephalus. There is no significant volume loss for age. The calvarium is intact. Orbits and globes are unremarkable. The paranasal sinuses are clear. Mastoid air cells are clear. Cervical Spine: There is no acute fracture. Alignment is anatomic. Disc spaces are maintained. Vertebral body heights are preserved. Soft tissues are unremarkable. IMPRESSION: No acute postraumatic findings. Electronically signed by: Arnol Nowak MD 03/16/2023 03:26 AM EXERCISE EQUIPMENT REPAIR TECHNICIAN Due to temporary technical issues with the PACS/Fluency reporting system, reports are being signed by the in house radiologists without review as a courtesy to insure prompt reporting. The interpreting radiologist is fully responsible for the content of the report.
== END 2023-03-16 07:20 | disposition short-term general hospital (02) ==
LOC: ER 22:28
PROC: 0BH17EZ Insertion of Endotracheal Airway into Trachea, Via Natural or Artificial Opening (ICD-10-PCS; principal; 2023-03-16)
PROC: 5A1935Z Respiratory Ventilation, Less than 24 Consecutive Hours (ICD-10-PCS; 2023-03-16)
DX: T40.711A Poisoning by cannabis, accidental (unintentional), initial encounter (principal); R45.1 Restlessness and agitation; K70.10 Alcoholic hepatitis without ascites; Z11.52 Encounter for screening for COVID-19
CPT/HCPCS: 0240U; 31500; 36415; 51702; 70450; 71045; 72125; 80048; 80076; 80143; 80179; 80307; 81025; 82077; 82947; 84439; 84443; 84703; 85025; 85610; 85730; 93005; 94002; 96372; 99285; J2250; J2405; J3010; J3411; J3480; J7030; J7042